=== PATIENT | female | born 1945 | race African-American/Black ===

== ENCOUNTER 2016-05-06 22:30 | Inpatient (IN) | payer MEDICARE ==
[~2016-05-06] VITALS: Ht 165.1 cm; Wt 79.3 kg
[~2016-05-06 22:30] MED LIST: ANAS1 PO; ASPI81TA82 PO; ATOR80TA41 PO; CENTTAB9 PO; FENO50TA PO; HYDR-2768 PO; IOHEXOL 350 MG/ML 100 ML BTL (for Cath Lab) OTHER ONE; LISI-363 PO; METF500 PO; NIFE60TA5 PO; NITR0.4S SL; PIOG30 PO; TRAM50TA PO; TRAV0.00 EACH EYE; VITA-13 PO; ZYRT10TA12 PO; [UNRECOGNIZED DRUG - CODE] PO
[2016-05-06 22:31] VITALS: BP 193/91; PULSE 80; RESP 16; TEMP 98; O2SAT 98
[2016-05-06 22:40] VITALS: O2SAT 96
[2016-05-06] MEDS ORDERED: NITROGLYCERIN 0.4 MG SL 25 TABS/BTL SL STA (22:42)
[2016-05-06] MEDS ORDERED: SODIUM CHLOR 0.9% 1000 ML INJ 1,000 ML IV ONE (22:42)
[2016-05-06] MEDS ORDERED: HEPARIN SODIUM - IV 10,000 UNITS/10 ML VIAL IV STA (22:42)
[2016-05-06] MEDS ORDERED: SODIUM CHLORIDE 0.9% FLUSH 5 ML FLUSH IVF PRN (22:45)
[2016-05-06] MEDS ORDERED: NITROGLYCERIN 0.4 MG SL 25 TABS/BTL SL ONE (22:47)
[2016-05-06 22:56] VITALS: BP 153/78; PULSE 91; RESP 18; O2SAT 94
[2016-05-06] MEDS: NITROGLYCERIN-DEXTROSE INJ 250 ML IV SCH (22:58)
[2016-05-06] MEDS ORDERED: ASPIRIN 81 MG CHEW TAB CHEW ONE (23:00)
[2016-05-06] MEDS ORDERED: ONDANSETRON HCL 4 MG/2 ML VIAL IV PUSH ONE (23:00)
[2016-05-06] MEDS ORDERED: MORPHINE SULFATE 4 MG/ML INJ IV PUSH ONE (23:00)
--- NOTE | 2016-05-06 23:01 | PD ---
Physical Exam Narrative General: The patient is a well-developed well-nourished female, uncomfortable appearing on arrival, slightly diaphoretic, reporting severe 10 out of 10 chest pain. Head and Neck exam: Head is normocephalic atraumatic. Eyes: Pupils are equal round and reactive to light. Nose: Midline septum with pink mucous membranes Mouth: Dentition unremarkable. Moist mucus membranes. Posterior oropharynx is not erythematous. No tonsillar hypertrophy. Uvula midline. Airway patent. Neck: No palpable lymphadenopathy. No nuchal rigidity. No thyromegaly. Cardiovascular: Regular rate and rhythm without murmurs, gallops, or rubs. No pulse deficit to the extremities and simultaneous auscultation and palpation of her radial artery. Lungs: Clear to auscultation bilaterally. No wheezes, rhonchi, or rales. Abdomen: Soft, without tenderness to palpation in all 4 quadrants of the abdomen. No guarding, rebound, or rigidity. Normal bowel sounds are audible. Extremities: No clubbing, cyanosis, or edema. 2+ pulses in all 4 extremities. No calf tenderness on palpation. Back: No spinous process tenderness to palpation. No costovertebral angle tenderness to palpation. Neurologic Exam: Grossly nonfocal. Skin Exam: No rash noted. Intact skin that is warm and dry. Data Data Last Documented VS Vital Signs Date Time Temp Pulse Resp B/P Pulse Ox O2 Delivery O2 Flow Rate FiO2 05/06/16 23:07 88 18 146/80 96 Nasal Cannula 2 05/06/16 22:31 98.0 Orders Troponin I (05/06/16 22:42) Ckmb (Isoenzyme) Profile (05/06/16 22:42) Complete Blood Count With Diff (05/06/16 22:42) I-Stat Profile (05/06/16 22:42) I-Stat Creatinine (05/06/16 22:42) Calcium (05/06/16 22:42) Magnesium (Mg) (05/06/16 22:42) Prothrombin Time / Inr (Pt) (05/06/16 22:42) Act Partial Throm Time (Ptt) (05/06/16 22:42) B-Type Natriuretic Peptide (05/06/16 22:42) Chest, Single Ap (05/06/16 22:42) Electrocardiogram (05/06/16 22:42) Oxygen Administration (05/06/16 22:42) Iv Access Insert/Monitor (05/06/16 22:42) Oximetry (05/06/16 22:42) Sodium Chlor 0.9% 1000 Ml Inj (Ns 1000 M (05/06/16 22:42) Sodium Chloride 0.9% Flush (Ns Flush) (05/06/16 22:45) Nitroglycerin Sl (Nitrostat Sl) (05/06/16 22:42) Nitroglycerin-Dextrose Inj (Nitroglyceri (05/06/16 22:45) Heparin Inj (Heparin Inj) (05/06/16 22:42) Aspirin Chew (Aspirin Chew) (05/06/16 23:00) Nitroglycerin Sl (Nitrostat Sl) (05/06/16 22:47) Morphine Inj (Morphine Inj) (05/06/16 23:00) Ondansetron Inj (Zofran Inj) (05/06/16 23:00) Admit Order (Ed Use Only) (05/06/16 23:12) CKMB (05/06/16 22:42) CKMB% (05/06/16 22:42) Labs Laboratory Tests Test 05/06/16 22:42 White Blood Count 9.0 TH/MM3 Red Blood Count 4.19 MIL/MM3 Hemoglobin 11.8 GM/DL Bedside Hemoglobin 11.9 G/DL Hematocrit 35.8 % Bedside Hematocrit 35.0 % Mean Corpuscular Volume 85.4 FL Mean Corpuscular Hemoglobin 28.2 PG Mean Corpuscular Hemoglobin 33.0 % Concent Red Cell Distribution Width 14.9 % Platelet Count 345 TH/MM3 Mean Platelet Volume 8.8 FL Neutrophils (%) (Auto) 39.8 % Lymphocytes (%) (Auto) 50.7 % Monocytes (%) (Auto) 8.1 % Eosinophils (%) (Auto) 0.9 % Basophils (%) (Auto) 0.5 % Neutrophils # (Auto) 3.6 TH/MM3 Lymphocytes # (Auto) 4.6 TH/MM3 Monocytes # (Auto) 0.7 TH/MM3 Eosinophils # (Auto) 0.1 TH/MM3 Basophils # (Auto) 0.0 TH/MM3 CBC Comment DIFF FINAL Differential Comment Prothrombin Time 10.7 SEC Prothromb Time International 1.0 RATIO Ratio Activated Partial 23.3 SEC Thromboplast Time Bedside Sodium 143 MMOL/L Bedside Potassium 4.2 MMOL/L Bedside Chloride 112 MMOL/L Bedside Blood Urea Nitrogen 35 MG/DL Bedside Creatinine 0.8 MG/DL Bedside Glucose 155 MG/DL Calcium Level 8.8 MG/DL Magnesium Level 1.8 MG/DL Total Creatine Kinase 175 U/L Creatine Kinase MB 2.7 NG/ML Troponin I 0.05 NG/ML B-Type Natriuretic Peptide 26 PG/ML [facility] Medical Record Reviewed: Yes Supervised Visit with JOSE MANUEL: Yes Interpretation(s) Laboratory Tests Test 05/06/16 22:42 White Blood Count 9.0 TH/MM3 Red Blood Count 4.19 MIL/MM3 Hemoglobin 11.8 GM/DL Bedside Hemoglobin 11.9 G/DL Hematocrit 35.8 % Bedside Hematocrit 35.0 % Mean Corpuscular Volume 85.4 FL Mean Corpuscular Hemoglobin 28.2 PG Mean Corpuscular Hemoglobin 33.0 % Concent Red Cell Distribution Width 14.9 % Platelet Count 345 TH/MM3 Mean Platelet Volume 8.8 FL Neutrophils (%) (Auto) 39.8 % Lymphocytes (%) (Auto) 50.7 % Monocytes (%) (Auto) 8.1 % Eosinophils (%) (Auto) 0.9 % Basophils (%) (Auto) 0.5 % Neutrophils # (Auto) 3.6 TH/MM3 Lymphocytes # (Auto) 4.6 TH/MM3 Monocytes # (Auto) 0.7 TH/MM3 Eosinophils # (Auto) 0.1 TH/MM3 Basophils # (Auto) 0.0 TH/MM3 CBC Comment DIFF FINAL Differential Comment Prothrombin Time 10.7 SEC Prothromb Time International 1.0 RATIO Ratio Activated Partial 23.3 SEC Thromboplast Time Bedside Sodium 143 MMOL/L Bedside Potassium 4.2 MMOL/L Bedside Chloride 112 MMOL/L Bedside Blood Urea Nitrogen 35 MG/DL Bedside Creatinine 0.8 MG/DL Bedside Glucose 155 MG/DL Calcium Level 8.8 MG/DL Magnesium Level 1.8 MG/DL Total Creatine Kinase 175 U/L Creatine Kinase MB 2.7 NG/ML Troponin I 0.05 NG/ML B-Type Natriuretic Peptide 26 PG/ML Last Impressions Chest X-Ray 05/06/16 3432 Signed Impressions: Service Date/Time: Friday, May 06, 2016 23:13 - CONCLUSION: No acute disease. Ruddy Taylor MD Narrative Course I, Dr. Cai, have reviewed the advance practice practitioner's documentation and am in agreement, met with the patient face to face, made the diagnosis, and the medical decision making was done by me. The patient was initially seen by Zoe. Please see her complete history and physical. *My assessment and Findings: The patient is a 71-year-old female who presents to [facility] emergency Department by private vehicle with a history of chest pain that awoke her from sound sleep approximately 30 minutes prior to arrival. The patient reports having history of prior myocardial infarction 18 years ago. She also reports having 2 prior stents placed. She is followed by Dr. Moses for her cardiology care. She reports that she last had a stress test done in December 2015 that was reportedly unremarkable. The patient reports that with the chest pain is of severe heaviness/pressure sensation that is 10 out of 10 in severity. She reports that there is shortness of breath associated with it, diaphoresis, and nausea. She reports that in the evening last night she was experiencing nausea before going to bed. An EKG was done on the patient's arrival and a STEMI alert was called by Zoe. She did speak to the electro mechanical designer emergently as I was tied up in another room. She spoke to Dr. Weeks at approximately 2241 and discussed the patient 's EKG findings and history with him. The patient was noted to have an anteroseptal HI with ST segment elevation in anteroseptal leads and reciprocal changes of depression in inferior leads on EKG. The patient's physical examination was remarkable for having diaphoresis, notable discomfort on exam. Otherwise cardiac and lung exam was unremarkable. The patient's initial blood pressure was a systolic in the 170s. The patient was given a sublingual nitroglycerin. The patient reports that she does take a baby aspirin daily. She was given an additional 243 mg of aspirin by mouth. She denied being on any other blood thinners. The patient was given a heparin bolus. The patient will be taken to the cardiac catheterization lab as a STEMI alert. Dr. Weeks arrived at the patient's bedside and assumed the patient's care and plans to take the patient to the Multicraft Operator urgently. The patients results were discussed with the patient, including the plan of care. I explained that further testing and/ or monitoring is indicated based on the patients history, examination, and/ or laboratory findings. Therefore, I recommended admission for additional evaluation. The patient expressed understanding and was agreeable with this plan. The patient was admitted to the hospital in guarded condition and sent to a bed under the care of the electro mechanical designer in the Multicraft Operator. Physician Communication Physician Communication The patient's case was discussed with Dr. Weeks when he arrived in the emergency department. He plans to take the patient to the Multicraft Operator urgently. The patient's case is also discussed with Dr. Weeks by Zoe, the nurse practitioner. Please see her complete history and physical regarding this visit. Diagnosis Primary Impression: STEMI (ST elevation myocardial infarction) Qualified Code: I21.3 - ST elevation myocardial infarction (STEMI), unspecified artery Admitting Information Admitting Physician Requests: Admit Scripts Unable to Obtain Active Prescriptions or Reported Meds Viky Cai MD May 06, 2016 23:01
[2016-05-06 23:07] VITALS: BP 146/80; PULSE 88; RESP 18; O2SAT 96
[2016-05-06 23:12] LABS: AUTOMATED NEUTROPHIL # 3.6 TH/MM3 (1.8-7.7); BASOPHIL % 0.5 % (0.0-2.0); EOSINOPHIL # 0.1 TH/MM3 (0-0.4); EOSINOPHIL % 0.9 % (0.0-4.0); HEMATOCRIT 35.8 % (35.0-46.0); HEMO FLAGS DIFF FINAL; I-STAT POTASSIUM 4.2 MMOL/L (3.5-4.9); I-STAT SODIUM 143 MMOL/L (138-146); LYMPH % 50.7 % (9.0-44.0); LYMPHOCYTE # 4.6 TH/MM3 (1.0-4.8); MEAN CELL VOLUME 85.4 FL (80.0-100.0); MEAN CORPUSCULAR HEMOGLOBIN 28.2 PG (27.0-34.0); MONO % 8.1 % (0.0-8.0); NEUT % 39.8 % (16.0-70.0); PLATELET COUNT 345 TH/MM3 (150-450); RED BLOOD COUNT 4.19 MIL/MM3 (4.00-5.30); RED CELL DISTRIBUTION WIDTH 14.9 % (11.6-17.2)
[2016-05-06 23:16] VITALS: BP 149/80; PULSE 89; RESP 16; O2SAT 96
--- NOTE | 2016-05-06 23:17 | PD ---
HPI Chief Complaint: STEMI Alert Time Seen by Provider: 22:40 Travel History International Travel<30 days: No Contact w/Intl Traveler<30days: No Traveled to known affect area: No History of Present Illness HPI Patient is a 71-year-old female presenting to the emergency Department by private vehicle for evaluation of chest pain. Patient states the chest pain started approximately 30 minutes prior to arrival. She was sleeping in her chair when she woke up and felt immense chest pressure. Patient reports feeling nauseated upon awakening earlier this morning and has been feeling fine otherwise. She had no preceding chest pain, shortness of breath, dizziness, radiation of pain to her arm or jaw, diaphoresis. Patient denies any recent illnesses. Patient reports a history of IA 18 years ago. PFSH Past Medical History Hx Anticoagulant Therapy: Yes (baby aspirin) Cancer: Yes (breast) Cardiac Catheterization: Yes Cardiovascular Problems: Yes High Cholesterol: Yes Chest Pain: Yes Coronary Artery Disease: Yes Diabetes: Yes Diminished Hearing: No Hypertension: Yes Myocardial Infarction: Yes Past Surgical History Coronary Stent: Yes (X2) Hysterectomy: Yes Joint Replacement: Yes (LEFT KNEE) Other Surgery: Yes (breast biopsy, breast lumpectomy, colonoscopy 2012) Social History Alcohol Use: Yes (RARELY) Tobacco Use: No Substance Use: No Allergies-Medications (Allergen,Severity, Reaction): Coded Allergies: Sulfa (Verified Allergy, Mild, N/V, 02/16/15) Reported Meds & Prescriptions Reported Meds & Active Scripts Active Review of Systems Except as stated in HPI: all other systems reviewed are Neg Cardiovascular: Positive: Chest Pain or Discomfort Gastrointestinal: Positive: Nausea Physical Exam Narrative GENERAL: Well-developed, well-nourished, alert female. Appears uncomfortable and in acute distress. SKIN: Warm and dry. HEAD: Atraumatic. Normocephalic. EYES: Pupils equal and round. No scleral icterus. No injection or drainage. ENT: No nasal bleeding or discharge. Mucous membranes pink and moist. NECK: Trachea midline. No JVD. CARDIOVASCULAR: Regular rate and rhythm. No murmur appreciated. No peripheral edema, positive pedal pulses bilaterally. Brisk less than 3 second capillary refill. RESPIRATORY: No accessory muscle use. Clear to auscultation. Breath sounds equal bilaterally. GASTROINTESTINAL: Abdomen soft, non-tender, nondistended. Hepatic and splenic margins not palpable. MUSCULOSKELETAL: No obvious deformities. No clubbing. No cyanosis. No edema. NEUROLOGICAL: Awake and alert. No obvious cranial nerve deficits. Motor grossly within normal limits. Normal speech. PSYCHIATRIC: Appropriate mood and affect; insight and judgment normal. Data Data Last Documented VS Vital Signs Date Time Temp Pulse Resp B/P Pulse Ox O2 Delivery O2 Flow Rate FiO2 05/06/16 23:07 88 18 146/80 96 Nasal Cannula 2 05/06/16 22:31 98.0 Orders Troponin I (05/06/16 22:42) Ckmb (Isoenzyme) Profile (05/06/16 22:42) Complete Blood Count With Diff (05/06/16 22:42) I-Stat Profile (05/06/16 22:42) I-Stat Creatinine (05/06/16:42) Calcium (05/06/16 22:42) Magnesium (Mg) (05/06/16 22:42) Prothrombin Time / Inr (Pt) (05/06/16 22:42) Act Partial Throm Time (Ptt) (05/06/16 22:42) B-Type Natriuretic Peptide (05/06/16 22:42) Chest, Single Ap (05/06/16 22:42) Electrocardiogram (05/06/16 22:42) Oxygen Administration (05/06/16 22:42) Iv Access Insert/Monitor (05/06/16 22:42) Oximetry (05/06/16 22:42) Sodium Chlor 0.9% 1000 Ml Inj (Ns 1000 M (05/06/16 22:42) Sodium Chloride 0.9% Flush (Ns Flush) (05/06/16 22:45) Nitroglycerin Sl (Nitrostat Sl) (05/06/16 22:42) Nitroglycerin-Dextrose Inj (Nitroglyceri (05/06/16 22:45) Heparin Inj (Heparin Inj) (05/06/16 22:42) Aspirin Chew (Aspirin Chew) (05/06/16 23:00) Nitroglycerin Sl (Nitrostat Sl) (05/06/16 22:47) Morphine Inj (Morphine Inj) (05/06/16 23:00) Ondansetron Inj (Zofran Inj) (05/06/16 23:00) Admit Order (Ed Use Only) (05/06/16 23:12) CKMB (05/06/16 22:42) CKMB% (05/06/16 22:42) Labs Laboratory Tests Test 05/06/16 22:42 White Blood Count 9.0 TH/MM3 Red Blood Count 4.19 MIL/MM3 Hemoglobin 11.8 GM/DL Bedside Hemoglobin 11.9 G/DL Hematocrit 35.8 % Bedside Hematocrit 35.0 % Mean Corpuscular Volume 85.4 FL Mean Corpuscular Hemoglobin 28.2 PG Mean Corpuscular Hemoglobin 33.0 % Concent Red Cell Distribution Width 14.9 % Platelet Count 345 TH/MM3 Mean Platelet Volume 8.8 FL Neutrophils (%) (Auto) 39.8 % Lymphocytes (%) (Auto) 50.7 % Monocytes (%) (Auto) 8.1 % Eosinophils (%) (Auto) 0.9 % Basophils (%) (Auto) 0.5 % Neutrophils # (Auto) 3.6 TH/MM3 Lymphocytes # (Auto) 4.6 TH/MM3 Monocytes # (Auto) 0.7 TH/MM3 Eosinophils # (Auto) 0.1 TH/MM3 Basophils # (Auto) 0.0 TH/MM3 CBC Comment DIFF FINAL Differential Comment Prothrombin Time 10.7 SEC Prothromb Time International 1.0 RATIO Ratio Activated Partial 23.3 SEC Thromboplast Time Bedside Sodium 143 MMOL/L Bedside Potassium 4.2 MMOL/L Bedside Chloride 112 MMOL/L Bedside Blood Urea Nitrogen 35 MG/DL Bedside Creatinine 0.8 MG/DL Bedside Glucose 155 MG/DL Calcium Level 8.8 MG/DL Magnesium Level 1.8 MG/DL Total Creatine Kinase 175 U/L Creatine Kinase MB 2.7 NG/ML Troponin I 0.05 NG/ML B-Type Natriuretic Peptide 26 PG/ML MDM Medical Decision Making Medical Screen Exam Complete: Yes Emergency Medical Condition: Yes Interpretation(s) Vital Signs Date Time Temp Pulse Resp B/P Pulse Ox O2 Delivery O2 Flow Rate FiO2 05/06/16 23:07 88 18 146/80 96 Nasal Cannula 2 05/06/16 23:06 96 Nasal Cannula 2 05/06/16 23:05 Nasal Cannula 2 05/06/16 22:56 91 18 153/78 94 Nasal Cannula 2 05/06/16 22:31 98.0 80 16 193/91 98 Differential Diagnosis Chest wall pain versus STEMI versus unstable angina versus aortic dissection versus pulmonary embolism versus other Narrative Course Patient is a 71-year-old female needed emergent evaluation of chest pain. I was presented with an EKG at approximately [address] changes/ST elevation with reciprocal changes. EKG was read by me. At that time a STEMI alert was called. I spoke with Dr. Weeks, diagnostic technician, regarding EKG changes and patient's presentation. STEMI protocol initiated. My attending physician also evaluated patient. Patient was given heparin, nitroglycerin sublingual, nitroglycerin drip started, 324 mg of aspirin. Patient placed clasp machine operator. Family at bedside. Patient transferred to the Photoengraving Finisher. Diagnosis Primary Impression: STEMI (ST elevation myocardial infarction) Qualified Code: I21.3 - ST elevation myocardial infarction (STEMI), unspecified artery Admitting Information Admitting Physician Requests: Admit Condition: Zoe Roca May 06, 2016 23:17
[2016-05-06 23:22] VITALS: BP 166/85
[2016-05-06 23:22] LABS: APTT (PATIENT) 23.3 SEC (24.3-30.1); PROTHROMBIN TIME - PATIENT 10.7 SEC (9.8-11.6)
[2016-05-06] MEDS ORDERED: MIDAZOLAM HCL 2 MG/2 ML VIAL ONE (23:24)
[2016-05-06] MEDS ORDERED: HEPARIN-NS/PF INJ 500 ML ONE (23:24)
[2016-05-06] MEDS ORDERED: HEPARIN SODIUM - IV 10,000 UNITS/10 ML VIAL ONE (23:25)
[2016-05-06] MEDS ORDERED: NITROGLYCERIN INJ 5 ML ONE (23:25)
[2016-05-06 23:30] LABS: CREATINE KINASE 175 U/L (26-192)
[2016-05-06 23:32] LABS: MAGNESIUM 1.8 MG/DL (1.5-2.5)
[2016-05-06 23:43] LABS: CKMB 2.7 NG/ML (0.5-3.6)
--- NOTE | 2016-05-06 23:47 | RADRPT ---
EXAM DATE/TIME: 05/06/2016 23:13 [place] COMPARISON: No previous studies available for comparison. INDICATIONS : Stemi alert. MEDICAL HISTORY : Coronary artery disease. SURGICAL HISTORY : Coronary artery stent. ENCOUNTER: Initial ACUITY: 1 day PAIN SCORE: Non-responsive. LOCATION: Bilateral chest FINDINGS: A single view of the chest demonstrates the lungs to be symmetrically aerated without evidence of mas s, infiltrate or effusion. The cardiomediastinal contours are unremarkable. Osseous structures are intact. CONCLUSION: No acute disease. Ruddy Taylor MD on May 06, 2016 at 23:46 Board Certified Radiologist. This report was verified electronically.
[2016-05-07] VITALS (23 sets, daily range): BP systolic 94–184; BP diastolic 33–96; PULSE 88–109; RESP 18–24; TEMP 97.5–99.1; O2SAT 88–97
[2016-05-07] MEDS ORDERED: TICAGRELOR 90 MG TAB PO ONE (01:03)
[2016-05-07] MEDS ORDERED: ONDANSETRON HCL 4 MG/2 ML VIAL IV PRN (01:30)
[2016-05-07] MEDS ORDERED: ATROPINE SULFATE 1 MG/ML VIAL IV PRN (01:30)
[2016-05-07] MEDS ORDERED: SODIUM CHLORIDE 0.9% FLUSH 5 ML FLUSH IVF PRN (01:30)
[2016-05-07] MEDS ORDERED: SODIUM CHLOR 0.9% 250 ML INJ 250 ML IV PRN (01:30)
[2016-05-07] MEDS: NITROGLYCERIN-DEXTROSE INJ 250 ML IV SCH (03:18)
[2016-05-07 06:14] LABS: AUTOMATED NEUTROPHIL # 8.6 TH/MM3 (1.8-7.7); BASOPHIL % 0.3 % (0.0-2.0); HEMATOCRIT 33.4 % (35.0-46.0); HEMO FLAGS DIFF FINAL; LYMPHOCYTE # 0.8 TH/MM3 (1.0-4.8); MEAN CELL VOLUME 84.2 FL (80.0-100.0); MEAN CORPUSCULAR HEMOGLOBIN 28.2 PG (27.0-34.0); MEAN CORPUSCULAR HGB CONC 33.5 % (32.0-36.0); MONO % 4.2 % (0.0-8.0); NEUT % 87.5 % (16.0-70.0); PLATELET COUNT 328 TH/MM3 (150-450); RED BLOOD COUNT 3.97 MIL/MM3 (4.00-5.30); RED CELL DISTRIBUTION WIDTH 14.8 % (11.6-17.2); WHITE BLOOD COUNT 9.8 TH/MM3 (4.0-11.0)
--- NOTE | 2016-05-07 06:29 | MB ---
cc: CAMACHO HENDERSON DO DATE OF CONSULTATION May 07, 2016 REASON FOR CONSULTATION STEMI Alert. HISTORY OF PRESENT ILLNESS Geraldine Uribe is a pleasant 71-year-old female who presented to [facility] on May 07, 2016, due to chest pain. She states that she was sleeping in her chair when she woke up and felt immense chest pressure. The pain started approximately 30 minutes prior to arrival. She states that she felt nauseated upon waking up earlier this morning but had been feeling fine otherwise today until this recent event that woke her up from sleep. She denies any previous chest pain, shortness of breath, dizziness. She previously had a cardiac catheterization by Dr. Burnett which had mild to moderate coronary artery disease in February of 2015. PAST MEDICAL HISTORY 1. Coronary artery disease. 2. Breast cancer. 3. Hyperlipidemia. 4. Diabetes mellitus. 5. Hypertension. PAST SURGICAL HISTORY 1. Rotational atherectomy and stenting of distal RCA with an AVE bare-metal stent (3.5 x 30) in 1997. 2. Stenting of the LAD (October 1998) with a MANI bare-metal stent (2.5 x 16). 3. Hysterectomy. 4. Left knee replacement. 5. Breast biopsy. 6. Breast lumpectomy. ALLERGIES SULFA. MEDICATIONS 1. Zyrtec 10 mg daily. 2. Tricor 145 mg daily. 3. Travoprost 0.004% one drop each eye every night. 4. Tramadol 50 mg every 4 hours as needed for pain. 5. Nitro sublingual as needed. 6. Nifedipine XL 60 mg daily. 7. Metformin 500 mg b.i.d. 8. Lisinopril 20 mg b.i.d. 9. Lipitor 80 mg every night. 10. Hydrochlorothiazide 25 mg daily. 11. Aspirin 81 mg daily. 12. Arimidex 1 mg daily. 13. Actos 30 mg daily. SOCIAL HISTORY Denies tobacco or substance abuse. Rarely drinks alcohol. FAMILY HISTORY Denies premature coronary artery disease or sudden cardiac within the family. REVIEW OF SYSTEMS Fourteen systems were reviewed in the emergency room records and above pertinent positives and negatives above, otherwise negative. PHYSICAL EXAMINATION VITAL SIGNS: Temperature 98.0, heart rate 89, blood pressure 150/80, respirations 16, pulse ox 96% on 3 liters. IN GENERAL: The patient appears in mild distress due to chest pain. HEENT: Extraocular muscles intact. Mucous membranes moist. NECK: Supple. No JVD at 45 degrees. No carotid bruits heard bilaterally. Carotid upstroke is brisk in nature. HEART: Regular in rate and rhythm. Positive first and second heart sounds with no murmurs, gallops or rubs. LUNGS: Decreased breath sounds at the bilateral bases but no overt wheezes, rales or rhonchi. ABDOMEN: Soft, nontender, nondistended. No organomegaly noted. EXTREMITIES: Trace to 1+ pitting edema. NEUROLOGIC: No focal deficits. SKIN: Warm, dry and intact. OSTEOPATHIC EXAM: No kyphoscoliosis. Mild lordosis. No paraspinal tender points. LABORATORY FINDINGS Hemoglobin 11.8, hematocrit 35.8, platelets 345. Potassium 4.2, BUN 35, creatinine 0.8. IMPRESSION 1. Acute anterior ST-elevation myocardial infarction. 2. History of coronary artery disease as above. 3. History of breast cancer. 4. Hyperlipidemia. 5. Diabetes mellitus. 6. Hypertension. RECOMMENDATIONS 1. Geraldine Uribe appears to be having an acute anterior ST- elevation myocardial infarction and will be taken to the cardiac catheterization lab emergently. She understands the risks, benefits and alternatives and consents to such. 2. Postprocedure her metformin will be held for 48 hours. 3. We will check a 2-D echo to look at her overall left ventricular function, cardiac structure and possible valvopathies. 4. Further recommendations made after coronary visualization. Thank you for allowing me to see Geraldine Uribe. If there are any questions, please do not hesitate to call. Camacho Henderson DO VGP/SSB /2:17 AM /6:18 AM
[2016-05-07 06:32] LABS: BICARBONATE 18.1 MEQ/L (21.0-32.0); POTASSIUM 4.6 MEQ/L (3.5-5.1)
[2016-05-07] MEDS: LISINOPRIL 10 MG TAB PO SCH (08:35)
[2016-05-07] MEDS: ASPIRIN 81 MG CHEW TAB PO SCH (08:36)
[2016-05-07] MEDS: TICAGRELOR 90 MG TAB PO SCH ×2 (08:36→20:58)
[2016-05-07] MEDS: NIFEdipine 20 MG CAP PO SCH ×3 (08:37→23:36)
[2016-05-07] MEDS: SODIUM CHLORIDE 0.9% FLUSH 5 ML FLUSH IVF SCH ×2 (08:47→20:59)
[2016-05-07] MEDS ORDERED: METOPROLOL TARTRATE 25 MG TAB PO SCH (09:00)
[2016-05-07] MEDS ORDERED: LISI-515 PO (09:41)
[2016-05-07] MEDS ORDERED: FENO50TA PO (09:41)
[2016-05-07] MEDS ORDERED: TRIA37.53 PO (09:41)
[2016-05-07] MEDS ORDERED: ASPI81CH CHEW (09:41)
[2016-05-07] MEDS ORDERED: NIFE1TAB86 PO (09:41)
[2016-05-07] MEDS ORDERED: LIPI80TA PO (09:41)
[2016-05-07] MEDS ORDERED: FUROSEMIDE 40 MG/4 ML VIAL IV PUSH ONE (09:45)
[2016-05-07] MEDS ORDERED: METF500T PO (09:47)
[2016-05-07] MEDS ORDERED: ANAS1 PO (09:47)
[2016-05-07] MEDS ORDERED: VITA10003 PO (09:47)
[2016-05-07] MEDS ORDERED: METO200T3 PO (09:47)
[2016-05-07] MEDS ORDERED: PIOG30TA4 PO (09:47)
--- NOTE | 2016-05-07 10:03 | MB ---
cc: CHUCK THAKUR DATE OF CONSULTATION: 05/06/2016 DATE OF : 1945 REASON FOR CONSULTATION: STEMI, chest pain. HISTORY OF PRESENT ILLNESS This is a pleasant 71-year-old black female who had been in her usual state of health, yesterday, according to her youngest daughter the patient went to yazidism, came home and took a long 5-hour nap, she interacted with family and had no complaints but her daughter stated that she thought it was a little unusual that she would sleep that length of time. The patient was awakened approximately 10:30 last night with acute onset of chest pain. She was brought to the emergency room, evaluated and seen per cardiology. The patient notes that the chest pain was intense pressure noted midsternal. She did note some radiation into both her arms with numbness and tingling. She was positive for diaphoresis. The patient denies any shortness of breath on initial chest pain episode. The patient does note a previous heart attack in 1997 and states that she had two stents during that episode. Currently the patient is in the Intensive Care Unit very dyspneic and hypoxic, O2 sat is running in the 81-84 range. She is currently on 100% non-rebreather and is actively short of breath and struggling to breathe. She is alert and oriented but is unable to give a whole lot of information secondary to the shortness of breath. Her daughter is at her side and is assisting with some of the information, the other information is gathered per the record. PAST MEDICAL HISTORY 1. Breast cancer. 2. Cardiovascular problems. 3. [place]. 4. Hyperlipidemia. 5. Chest pain. 6. Coronary artery disease. 7. Diabetes with oral hypoglycemics. 8. Hypertension. 9. Her history of anticoagulant therapy is a baby aspirin. PAST SURGICAL HISTORY 1. Coronary stents x2. 2. Hysterectomy. 3. Left knee replacement. 4. Breast biopsy with lumpectomy. 5. Colonoscopy. All done in 2012. ALLERGIES SULFA. MEDICATIONS Reported: 1. Zyrtec. 2. Vitamin D. 3. Tricor. 4. Travatan Z. 5. Tramadol. 6. Nitroglycerin sublingual. 7. Procardia XL. 8. Glucophage. 9. Lisinopril. 10. Lipitor. 11. Hydrochlorothiazide. 12. Iron supplement. 13. Centrum. 14. Multivitamins. 15. ASA. 16. Arimidex. 17. Actos. SOCIAL HISTORY Rare alcohol. No tobacco, no illicit drugs. Currently the patient lives at home with her daughter. The daughter and the patient live together. FAMILY HISTORY NA. PHYSICAL EXAMINATION VITAL SIGNS: Temperature is 98, pulse 100, respirations 22-26, O2 sat 84 to 92, 100% non-rebreather. Blood pressure 136/88. GENERAL: Well-nourished black female, looks younger than her stated age, resting in the bed in the ICU setting. She is actively short of breath and alert. HEENT: Atraumatic, normocephalic. PERRLA at 3. Mucous membranes are pink and moist. Neck is supple. No nasal or ocular discharge. CARDIOVASCULAR: Heart sounds are distant, mildly tachycardic. No murmurs, rubs or gallops appreciated. CHEST: No edema. Pulses are intact. PULMONARY: Tachypneic respirations, decreased breath sounds in her bases bilateral. No rhonchi. ABDOMEN: Abdomen is round, soft, nontender, nondistended. Active bowel sounds. MUSCULOSKELETAL: She can move all her extremities with purpose. She has equal hand home health care physician. Her pulses are intact. NEUROLOGIC: She is alert, obviously anxious, responds with short sentences or short answers. SKIN: Skin is pink mucous membranes, warm and dry. DIAGNOSTIC DATA Chest x-ray last p.m. at 2313 shows no acute disease. ASSESSMENT/PLAN 1. STEMI. 2. Dyspnea with hypoxia. 3. Diabetes. 4. Hypertension. 5. Hyperlipidemia. 6. History of breast cancer. Our plan is to admit inpatient. The patient will be kept on bedrest, heart healthy diet. Vital signs q. 1 to q. 4 as warranted per the patient's condition. 2-D echo, medications were reconciled. The patient is on heparin as well as aspirin, Brilinta, nitroglycerin drip. Cardiology is following for her acute cardiovascular needs and we will monitor her medical management. She is full code, full aggressive care to my knowledge and we will follow. Dictated by: LANEY White Chuck Thakur MD JP/TAMARA /8:42 AM /10:01 AM PT SEEN AND EXAMINED ON DAY OF ADMISSION ABOVE CHART WAS REVIEWED IN DETAIL DW PT DW RN DW SEWING MACHINE MAINTENANCE MECHANIC ABOUT PLAN OF CARE MTDD
--- NOTE | 2016-05-07 14:18 | EKG ---
Date Performed: 05/07/2016 Time Performed: 05:56:42 PTAGE: 71 years EKG: Sinus tachycardia ANTEROSEPTAL INFARCT - POSSIBLY ACUTE Lateral ST elevation, CONSI CHRISTY ACUTE INFARCT Abnormal ECG PREVIOUS TRACING : 02/16/2015 07.27 DOCTOR: Hari Srivastava Interpretating Date/Time 05/07/2016 14:15:14
--- NOTE | 2016-05-07 14:25 | EKG ---
Date Performed: 05/06/2016 Time Performed: 22:36:58 PTAGE: 71 years EKG: Sinus rhythm STEMI ST elevation in V1 and V2 suggestive on Myocardial Injury ST DEPRESSION in III and aVF ABNORMA L ECG Correlate clinically NO PREVIOUS TRACING DOCTOR: Hari Srivastava Interpretating Date/Time 05/07/2016 14:21:54
[2016-05-07] MEDS ORDERED: RESP: ALBUTEROL 2.5 MG/IPRATROPIUM 0.5 MG NEB (PRN) NEB (15:15)
[2016-05-07] MEDS ORDERED: DEXTROSE 50% IN WATER 50 ML VIAL(D50) IV PUSH PRN (15:30)
[2016-05-07] MEDS ORDERED: GLUCAGON 1 MG/ML VIAL OTHER PRN (15:30)
--- NOTE | 2016-05-07 15:36 | PD.CARD.PN ---
Subjective Subjective Remarks No chest pain, mild SOB over night but feeling somewhat better Objective Medications Current Medications Medications (Trade) Dose Ordered Sig/Davidson Route Start Time Stop Time Status Last Admin (Nitroglycerin-Dextrose Inj) 250 ml @ 0 mls/hr TITRATE IV 05/06/16 22:45 05/07/16 03:18 (NS Flush) 2 ml UNSCH PRN IVF 05/07/16 01:30 (NS Flush) 2 ml BID IVF 05/07/16 09:00 05/07/16 08:47 (Aspirin Chew) 81 mg DAILY PO 05/07/16 09:00 05/07/16 08:36 (Brilinta) 90 mg BID PO 05/07/16 09:00 05/07/16 08:36 Atropine Sulfate 0.5 mg 0.5 mg UNSCH PRN IV 05/07/16 01:30 (NS 250 ml Inj) 250 ml @ 500 mls/hr ONCE PRN IV 05/07/16 01:30 05/08/16 01:29 (Zofran Inj) 4 mg Q4H PRN IV 05/07/16 01:30 (Heparin Inj) 5,000 units Q8H SQ 05/07/16 18:00 (Lopressor) 12.5 mg BID PO 05/07/16 09:00 05/07/16 08:36 (Prinivil) 10 mg DAILY PO 05/07/16 09:00 05/07/16 08:35 (Procardia) 20 mg Q8HR PO 05/07/16 06:00 05/07/16 13:33 (Lipitor) 80 mg HS PO 05/07/16 21:00 (Arimidex) 1 mg DAILY PO 05/08/16 09:00 (Vitamin D3) 1,000 units DAILY PO 05/08/16 09:00 (Tricor) 145 mg DAILY PO 05/08/16 09:00 (Prinivil) 20 mg BID PO 05/07/16 21:00 (Actos) 30 mg DAILY PO 05/08/16 09:00 (Dyazide 37.5-25 Mg) 1 cap DAILY PO 05/08/16 09:00 (Toprol Xl) 200 mg DAILY PO 05/08/16 09:00 (D50w (Vial) Inj) 25 ml UNSCH PRN IV PUSH 05/07/16 15:30 (Glucagon Inj) 1 mg UNSCH PRN OTHER 05/07/16 15:30 Vital Signs / I&O Vital Signs Date Time Temp Pulse Resp B/P Pulse Ox O2 Delivery O2 Flow Rate FiO2 05/07/16 14:30 88 05/07/16 13:05 95 05/07/16 12:03 97 05/07/16 11:30 89 05/07/16 11:30 97.6 96 18 117/72 91 05/07/16 10:01 98 05/07/16 09:25 92 Nasal Cannula 4.00 05/07/16 08:00 92 Partial Rebreather 13.00 05/07/16 07:50 98.9 105 20 128/81 97 Arterial Line 05/07/16 07:50 105 05/07/16 05:00 99 05/07/16 05:00 98.0 99 22 136/88 96 156/86 05/07/16 04:00 100 05/07/16 04:00 98.0 103 22 138/87 92 160/88 05/07/16 03:00 98.0 100 22 143/95 95 167/33 05/07/16 03:00 100 05/07/16 02:00 103 05/07/16 02:00 98.0 103 22 146/94 92 177/92 05/07/16 01:33 97.5 100 22 164/96 88 184/96 05/07/16 01:30 101 05/07/16 00:45 93 Partial Rebreather 13.00 05/06/16 23:22 93 16 166/85 96 Nasal Cannula 3 05/06/16 23:16 89 16 149/80 96 Nasal Cannula 3 05/06/16 23:07 88 18 146/80 96 Nasal Cannula 2 05/06/16 23:06 96 Nasal Cannula 2 05/06/16 23:05 Nasal Cannula 2 05/06/16 22:56 91 18 153/78 94 Nasal Cannula 2 05/06/16 22:40 96 2.00 05/06/16 22:31 98.0 80 16 193/91 98 I/O 05/06/16 05/06/16 05/06/16 05/07/16 05/07/16 05/07/16 07:00 15:00 23:00 07:00 15:00 23:00 Intake Total 260 ml Output Total 550 ml Balance -290 ml Intake Oral 240 ml IV Total 20 ml Output Urine Total 550 ml Physical Exam GENERAL: NAD, AAOx3 SKIN: Warm and dry. HEAD: Atraumatic. Normocephalic. EYES: Pupils equal and round. No scleral icterus. No injection or drainage. ENT: No nasal bleeding or discharge. Mucous membranes pink and moist. NECK: Trachea midline. No JVD. CARDIOVASCULAR: Regular rate and rhythm. RESPIRATORY: No accessory muscle use. Decreased breath sounds bilaterally, mild rales at bases GASTROINTESTINAL: Abdomen soft, non-tender, nondistended. Hepatic and splenic margins not palpable. MUSCULOSKELETAL: Extremities without clubbing, cyanosis, or edema. No obvious deformities. Right femoral no hematoma/bruit, distal pulses intact NEUROLOGICAL: Awake and alert. No obvious cranial nerve deficits. Motor grossly within normal limits. Five out of 5 muscle strength in the arms and legs. Normal speech. PSYCHIATRIC: Appropriate mood and affect; insight and judgment normal. Laboratory Laboratory Tests Test 05/06/16 05/07/16 22:42 05:36 White Blood Count 9.0 TH/MM3 9.8 TH/MM3 Red Blood Count 4.19 MIL/MM3 3.97 MIL/MM3 Hemoglobin 11.8 GM/DL 11.2 GM/DL Bedside Hemoglobin 11.9 G/DL Hematocrit 35.8 % 33.4 % Bedside Hematocrit 35.0 % Mean Corpuscular Volume 85.4 FL 84.2 FL Mean Corpuscular Hemoglobin 28.2 PG 28.2 PG Mean Corpuscular Hemoglobin 33.0 % 33.5 % Concent Red Cell Distribution Width 14.9 % 14.8 % Platelet Count 345 TH/MM3 328 TH/MM3 Mean Platelet Volume 8.8 FL 8.7 FL Neutrophils (%) (Auto) 39.8 % 87.5 % Lymphocytes (%) (Auto) 50.7 % 8.0 % Monocytes (%) (Auto) 8.1 % 4.2 % Eosinophils (%) (Auto) 0.9 % 0.0 % Basophils (%) (Auto) 0.5 % 0.3 % Neutrophils # (Auto) 3.6 TH/MM3 8.6 TH/MM3 Lymphocytes # (Auto) 4.6 TH/MM3 0.8 TH/MM3 Monocytes # (Auto) 0.7 TH/MM3 0.4 TH/MM3 Eosinophils # (Auto) 0.1 TH/MM3 0.0 TH/MM3 Basophils # (Auto) 0.0 TH/MM3 0.0 TH/MM3 CBC Comment DIFF FINAL DIFF FINAL Differential Comment Prothrombin Time 10.7 SEC Prothromb Time International 1.0 RATIO Ratio Activated Partial 23.3 SEC Thromboplast Time Bedside Sodium 143 MMOL/L Bedside Potassium 4.2 MMOL/L Bedside Chloride 112 MMOL/L Bedside Blood Urea Nitrogen 35 MG/DL Bedside Creatinine 0.8 MG/DL Bedside Glucose 155 MG/DL Calcium Level 8.8 MG/DL 8.4 MG/DL Magnesium Level 1.8 MG/DL Total Creatine Kinase 175 U/L Creatine Kinase MB 2.7 NG/ML Troponin I 0.05 NG/ML B-Type Natriuretic Peptide 26 PG/ML Sodium Level 138 MEQ/L Potassium Level 4.6 MEQ/L Chloride Level 110 MEQ/L Carbon Dioxide Level 18.1 MEQ/L Anion Gap 10 MEQ/L Blood Urea Nitrogen 26 MG/DL Creatinine 0.85 MG/DL Estimat Glomerular Filtration 80 ML/MIN Rate Random Glucose 209 MG/DL Assessment and Plan Problem List: (1) STEMI (ST elevation myocardial infarction) (2) Coronary artery disease (3) Hypertension (4) S/P coronary artery stent placement Assessment and Plan 1) Acute anterior STEMI s/p RODNEY to LAD#1, RODNEY to LAD#2 (has a dual LAD system) 2) ASA/Brilinta/BB/Statin 3) Check 2D echo 4) Lasix IV today, will reassess tomorrow, LVEDP elevated on cath Problem Qualifiers (1) STEMI (ST elevation myocardial infarction): Qualified Code: I21.3 - ST elevation myocardial infarction (STEMI), unspecified artery Camacho Weeks DO May 07, 2016 15:36
[2016-05-07] MEDS: INSULIN ASPART SUPPLEMENTAL SCALE SQ SCH ×2 (16:19→21:00)
[2016-05-07] MEDS: HEPARIN SODIUM - SQ 10,000 UNITS/ML VIAL SQ SCH (17:51)
[2016-05-07] MEDS: LISINOPRIL 20 MG TAB PO SCH (20:58)
[2016-05-07] MEDS: ATORVASTATIN 40 MG TAB PO SCH (20:58)
[2016-05-07] MEDS ORDERED: ATORVASTATIN 10 MG TAB PO SCH (21:00)
[2016-05-07] MEDS ORDERED: ATORVASTATIN 80 MG TAB PO SCH (21:00)
[2016-05-08] VITALS (23 sets, daily range): BP systolic 105–122; BP diastolic 57–74; PULSE 85–120; RESP 20–26; TEMP 97.6–100.4; O2SAT 92–98
[2016-05-08] MEDS: HEPARIN SODIUM - SQ 10,000 UNITS/ML VIAL SQ SCH ×3 (03:37→16:20)
[2016-05-08] MEDS ORDERED: ACETAMINOPHEN 325 MG TAB PO PRN (05:00)
[2016-05-08 05:03] LABS: HEMATOCRIT 32.9 % (35.0-46.0); MEAN CELL VOLUME 83.3 FL (80.0-100.0); MEAN CORPUSCULAR HGB CONC 33.6 % (32.0-36.0); PLATELET COUNT 275 TH/MM3 (150-450); RED BLOOD COUNT 3.95 MIL/MM3 (4.00-5.30); RED CELL DISTRIBUTION WIDTH 14.8 % (11.6-17.2); REVIEW FLAG FINAL; WHITE BLOOD COUNT 11.3 TH/MM3 (4.0-11.0)
[2016-05-08 05:27] LABS: BICARBONATE 19.5 MEQ/L (21.0-32.0); POTASSIUM 3.9 MEQ/L (3.5-5.1)
[2016-05-08] MEDS: NIFEdipine 20 MG CAP PO SCH ×3 (05:41→21:30)
[2016-05-08] MEDS: INSULIN ASPART SUPPLEMENTAL SCALE SQ SCH ×4 (06:27→21:31)
[2016-05-08] MEDS: ANASTROZOLE 1 MG TAB PO SCH (08:18)
[2016-05-08] MEDS: TICAGRELOR 90 MG TAB PO SCH ×2 (08:18→21:30)
[2016-05-08] MEDS: LISINOPRIL 20 MG TAB PO SCH ×2 (08:18→21:31)
[2016-05-08] MEDS: ASPIRIN 81 MG CHEW TAB PO SCH (08:18)
[2016-05-08] MEDS: FENOFIBRATE 145 MG TAB PO SCH (08:18)
[2016-05-08] MEDS: LISINOPRIL 10 MG TAB PO SCH (08:18)
[2016-05-08] MEDS: CHOLECALCIFEROL (VIT D3) 1000 UNIT TAB PO SCH (08:18)
[2016-05-08] MEDS: SODIUM CHLORIDE 0.9% FLUSH 5 ML FLUSH IVF SCH ×2 (08:19→21:31)
[2016-05-08] MEDS: METOPROLOL SUCCINATE 50 MG EXTENDED RELEASE TAB PO SCH (08:19)
[2016-05-08] MEDS: PIOGLITAZONE HCL 30 MG TAB PO SCH (08:19)
[2016-05-08] MEDS ORDERED: ASPIRIN 81 MG CHEW TAB CHEW SCH (09:00)
[2016-05-08] MEDS ORDERED: NIFEdipine 60 MG SUSTAINED RELEASE TAB PO SCH (09:00)
[2016-05-08] MEDS ORDERED: TRIAMTERENE/HCTZ 37.5 MG/25 MG CAP PO SCH (09:00)
--- NOTE | 2016-05-08 10:39 | MA ---
cc: CAMACHO HENDERSON DO DATE: 05/06/2016 PROCEDURE 1. Left heart catheterization. 2. Coronary angiogram. 3. Resolute drug-eluting stent (2.25 x 22) to LAD #1. 4. Resolute drug-eluting stent (2.25 x 18) to LAD #2. 5. Aspiration thrombectomy of ramus branch. PREPROCEDURE DIAGNOSIS Acute anterior ST elevation myocardial infarction. POSTPROCEDURE DIAGNOSIS Multivessel disease with a 99% occlusion and thrombus within LAD #1, 100% occlusion of LAD #2. MEDICATIONS GIVEN 1. Heparin 6000 units (given 5000 units in the emergency room). 2. Fentanyl 50 mcg. 3. Nitro drip decreased to off. 4. Brilinta 180 mg. CONTRAST USED 290 cc. FLUOROSCOPY TIME 18.4 minutes. ESTIMATED BLOOD LOSS 40 cc. PROCEDURAL SUMMARY Geraldine Uribe is a pleasant 71-year-old female who originally presented due to chest pain. She was found to have anterior ST elevations on her EKG and she was brought to the cardiac catheterization lab emergently. The risks, benefits and alternatives were explained and she consented as such. She was prepped in the usual sterile fashion. The right femoral artery was accessed using a modified Seldinger technique with a micropuncture needle with placement of a 6-Tajik sheath which was easily aspirated and flushed. A JR4 was then advanced to the ascending aorta over a J-wire and this was used to cross the aortic valve for measurement of the left ventricular pressure. LVEDP was elevated at 39. This was pulled back across the aortic valve showing no significant gradient of aortic stenosis. The JR4 was then used for selective angiography of the right coronary artery which is a dominant vessel. Throughout the proximal and midportion there are mild luminal irregularities. In the distal portion a previous stent had 30-40% in-stent restenosis. No collaterals are noted to the left coronary system. The JR4 was then exchanged for an EBU 3.5 guide which was used for selective angiography of the left coronary system. The left main is a relatively normal-appearing vessel which ends up trifurcating into an LAD, ramus and left circumflex. The patient is known to have a dual LAD system and the medial LAD has 99% stenosis with thrombus throughout. The more lateral LAD which appears to come off the ramus had a previous stent in it and is 100% occluded. The other branch off the ramus is a large vessel with no significant disease. The circumflex gives off one obtuse marginal and has no significant disease. INTERVENTION At this time the medial LAD is somewhat open with thrombus within it as the lateral LAD is 100% occluded. The patient was having some resolution of symptoms so I questioned the chronicity of the lateral LAD occlusion. I did attempt briefly to try to place a wire across this and was unsuccessful. At that time I thought the culprit vessel was the medial LAD. A BMW wire was then advanced to the distal portion. A compliant balloon (2 x 12) was used to cross the lesion. After this, this was exchanged for a noncompliant balloon (2 x 12). The lesion was then stented with a Resolute drug-eluting stent (2.25 x 22). A noncompliant balloon (2.25 x 15) was then used to post dilate the stent. At this time Geraldine was still having significant chest pain and so I felt that the lateral LAD needed to be reevaluated. A second BMW wire was then advanced and able to cross through the previous stent. A compliant balloon (2 x 12) was then advanced and inflated across the lesion. At this time there was notable thrombus most likely from ballooning the previous lesion in the other branch of the ramus. A third BMW wire was then placed down the ramus. An [place] catheter was then used for aspiration thrombectomy of the ramus. It was noted that this pushed this somewhat distally and a balloon was then used to daughter the distal portions of the ramus. After this an attempt was made for [place] aspiration thrombectomy of the distal ramus. After flow was reestablished in the ramus a Resolute drug-eluting stent (2.25 x 18) was then advanced down the lateral LAD and inflated just distal to the ostium to cover the previous stent. The noncompliant balloon (2.25 x 15) was then used to post dilate the stent. After removal of the noncompliant balloon selective angiography showed two well-expanded stents with no perforations or dissections as well as SHEMAR-III flow throughout the ramus with no thrombus distally. At this time the EBU catheter was removed over a J-wire. Nitro had been weaned throughout the case and was off at the end of the case. The femoral sheath was then sewn in with a plan for this to be pulled later in the day. The patient left the cath lab technologist cardiovascularly stable. IMPRESSIONS 1. Acute anterior ST elevation myocardial infarction. 2. Multivessel disease with stenting as above. 3. Elevated LVEDP at 39. RECOMMENDATIONS 1. Geraldine will be placed on aspirin and Brilinta and was loaded with 180 mg of Brilinta in the cath lab technologist. She understands that she needs to be on Brilinta for at least 12 months and aspirin indefinitely. 2. 2-D echo will be done to look at her overall left ventricular function, cardiac structure and possible valvulopathies. 3. Her regular ultrasonic welding machine operator is Dr. Burnett and I will discuss with him whether he would like to see the patient or if he would like me to take care of the patient, and on discharge have her follow-up with him. 4. She will be placed on statin therapy. 5. Further recommendations based on hospital course. Thank you for allowing me to see Geraldine Uribe. If there are any questions, please do not hesitate to call. Camacho Henderson DO VGP/BT /11:00 PM /10:09 AM
--- NOTE | 2016-05-08 12:33 | EC ---
Study Study Date:05/07/2016 STUDY CONCLUSIONS SUMMARY - Left ventricle: The cavity size was normal. Wall thickness was normal. Systolic function was severely reduced. The estimated ejection fraction was 15%. Diffuse hypokinesis. Akinesis. - Aortic valve: Valve area: 2.59cm^2(VTI). Valve area: 2.37cm^2 (Vmax). - Mitral valve: Mild regurgitation. - Tricuspid valve: Mild regurgitation. - Pulmonary arteries: PA peak pressure: 35mm Hg (S). If LV function is below 40, please consider prescribing an ACEI or ARB or document rationale for non-use. PROCEDURE DATA STUDY STATUS: Elective. Procedure: Transthoracic echocardiography. Image quality was good. Scanning was performed from the parasternal, apical, and subcostal acoustic windows. Study completion: The patient tolerated the procedure well. Transthoracic echocardiography. M-mode, complete 2D, complete spectral Doppler, and color Doppler. Height: Height: 65in. Weight: Weight: 173.6lb. Body mass index: BMI: 29kg/m^2. Body surface area: BSA: 1.86m^2. Patient status: Inpatient. CARDIAC ANATOMY LEFT VENTRICLE: The cavity size was normal. Wall thickness was normal. Systolic function was severely reduced. The estimated ejection fraction was 15%. Diffuse hypokinesis. Regional wall motion abnormalities: Akinesis. AORTIC VALVE: Trileaflet; normal thickness leaflets. Doppler: Transvalvular velocity was within the normal range. There was no stenosis. No regurgitation. Valve area: 2.59cm^2(VTI). Indexed valve area: 1.39cm^2/m^2 (VTI). Valve area: 2.37cm^2 (Vmax). Indexed valve area: 1.27cm^2/m^2 (Vmax). Mean gradient: 2mm Hg (S). AORTA: Aortic root: The aortic root was normal in size. MITRAL VALVE: Structurally normal valve. Doppler: Transvalvular velocity was within the normal range. There was no evidence for stenosis. Mild regurgitation. LEFT ATRIUM: The atrium was normal in size. RIGHT VENTRICLE: The cavity size was normal. Wall thickness was normal. PULMONIC VALVE: Doppler: Transvalvular velocity was within the normal range. There was no evidence for stenosis. No regurgitation. TRICUSPID VALVE: Structurally normal valve. Doppler: Transvalvular velocity was within the normal range. Mild regurgitation. PULMONARY ARTERY: The main pulmonary artery was normal-sized. Systolic pressure was within the normal range. RIGHT ATRIUM: The atrium was normal in size. PERICARDIUM: There was no pericardial effusion. SYSTEMIC VEINS: Inferior vena cava: The vessel was normal in size. Patient weight: 173.6lb _Ejection fraction:_ 65-75% _Fractional shortening:_ 32% up to 5Kg 5-11.5Kg 11.6-22.9Kg 23-45Kg 45-57Kg Aortic Root 7-13 <17 13-22 17-27 17-27 LA diam 6-13 <23 24-38 33-47 37-40 RVID 10-17 7-15 7-15 7-18 8-17 LVIDd 12-22 <32 24-38 33-47 37-40 LVPW 2-4 3-6 5-7 6-8 7-8 IVS 2-4 3-6 5-7 6-8 7-8 BASIC MEASUREMENTS ADULT NORMAL Left ventricle LV internal dimension, ED, chordal 51.8 mm 43-52 level, PLAX LV internal dimension, ES, chordal *48.3 mm 23-38 level, PLAX Fractional shortening, chordal level, *7 % >29 PLAX LV posterior wall thickness, ED 7.35 mm IVS/LVPW ratio, ED 1.06 <1.3 Ventricular septum Septal thickness, ED 7.76 mm Aortic valve Leaflet separation 17 mm 15-26 Aorta Root diameter, ED 29 mm Left atrium Anterior-posterior dimension 30 mm Anterior-posterior dimension index 1.61 cm/m^2 <2.2 BASIC MEASUREMENTS ADULT NORMAL Aortic valve Leaflet separation 17 mm 15-26 DOPPLER MEASUREMENTS ADULT NORMAL Main pulmonary artery Pressure, S *35 mm Hg =30 Aortic valve Peak velocity, S 85.7 cm/s Mean velocity, S 64.7 cm/s VTI, S 13.7 cm Mean gradient, S 2 mm Hg Valve area, VTI 2.59 cm^2 Valve area index, VTI 1.39 cm^2/m^2 Valve area, Vmax 2.37 cm^2 Valve area index, Vmax 1.27 cm^2/m^2 Mitral valve Peak E-wave velocity 38.6 cm/s Peak A-wave velocity 87.6 cm/s Deceleration time *77 ms 150-230 Peak E/A ratio 0.4 Tricuspid valve Regurgitant peak velocity 283 cm/s Peak RV-RA gradient, S 32 mm Hg Maximal regurgitant velocity 283 cm/s Systemic veins Estimated CVP 5 mm Hg Right ventricle RV pressure, S *37 mm Hg <30 Pulmonic valve Peak velocity, S 72.4 cm/s LEGEND: Mean values are shown as u=mean value. Asterisk (*) burrows values outside specified normal range. Prepared and signed by Hari Srivastava [id number]
--- NOTE | 2016-05-08 14:00 | HHI.PR ---
Subjective Remarks Patient is feeling tired Sometime shortness of breath No cough No wheezing No chest pain No known pain Had a bowel movement today No nausea vomiting Review of system for 12 point system otherwise unremarkable Objective Objective Results - Vital Signs Date Time Temp Pulse Resp B/P Pulse Ox O2 Delivery O2 Flow Rate FiO2 05/08/16 12:01 95 05/08/16 11:45 97.6 95 24 117/61 98 05/08/16 11:00 90 05/08/16 10:00 89 05/08/16 09:00 89 05/08/16 08:01 98.3 107 20 113/69 92 05/08/16 08:00 104 05/08/16 07:23 93 Nasal Cannula 2.00 05/08/16 07:00 98 05/08/16 06:00 109 05/08/16 05:00 110 05/08/16 03:00 100.4 104 26 105/57 94 Arterial Line 05/08/16 03:00 120 05/08/16 01:00 108 05/07/16 23:00 98.7 109 24 124/72 91 05/07/16 23:00 104 05/07/16 21:00 103 05/07/16 20:40 Nasal Cannula 2.00 05/07/16 20:00 99 05/07/16 19:00 106 05/07/16 19:00 99.1 106 22 129/66 91 05/07/16 18:01 101 05/07/16 17:09 99 05/07/16 16:00 96 05/07/16 15:57 97.8 88 18 94/52 95 05/07/16 15:57 92 05/07/16 14:30 88 I/O 05/07/16 05/07/16 05/07/16 05/08/16 05/08/16 05/08/16 07:00 15:00 23:00 07:00 15:00 23:00 Intake Total 260 ml 480 ml 440 ml Output Total 550 ml 1200 ml Balance -290 ml -720 ml 440 ml Intake Oral 240 ml 480 ml 440 ml IV Total 20 ml Output Urine Total 550 ml 1200 ml # Voids 3 # Bowel Movements 0 0 Result Diagram: 05/08/16 0425 05/08/16 0425 Other Results Laboratory Tests Test 05/08/16 04:25 White Blood Count 11.3 Red Blood Count 3.95 Hemoglobin 11.1 Hematocrit 32.9 Mean Corpuscular Volume 83.3 Mean Corpuscular Hemoglobin 28.0 Mean Corpuscular Hemoglobin 33.6 Concent Red Cell Distribution Width 14.8 Platelet Count 275 Mean Platelet Volume 8.9 Sodium Level 137 Potassium Level 3.9 Chloride Level 105 Carbon Dioxide Level 19.5 Anion Gap 13 Blood Urea Nitrogen 26 Creatinine 0.83 Estimat Glomerular Filtration 82 Rate Random Glucose 175 Calcium Level 9.1 Physical Exam Physical Exam VITAL SIGNS: Reviewed GENERAL: Well-nourished black female, looks younger than her stated age, resting in recliner. Not in any acute distress HEENT: Atraumatic, normocephalic. PERRLA at 3. Mucous membranes are pink and moist. Neck is supple. No nasal or ocular discharge. CARDIOVASCULAR: Heart sounds are distant, mildly tachycardic. No murmurs, rubs or gallops appreciated. CHEST: No edema. Pulses are intact. PULMONARY: decreased breath sounds in her bases bilateral. No rhonchi. ABDOMEN: Abdomen is round, soft, nontender, nondistended. Active bowel sounds. MUSCULOSKELETAL: She can move all her extremities with purpose. She has equal hand associate field service engineer. Her pulses are intact. NEUROLOGIC: She is alert, responds with short sentences or short answers. SKIN: Skin is pink mucous membranes, warm and dry. A/P Assessment and Plan 1. STEMI. 2. Dyspnea with hypoxia. 3. Diabetes. 4. Hypertension. 5. Hyperlipidemia. 6. History of breast cancer. Status post cardiac catheter and stent. 2-D echo report reviewed EF of 15% Medications reviewed Improving bicarbonate heart healthy diet. aspirin, Brilinta Discuss with cardiology Cardiology is following appreciate input and help. Dr. Lex keller follow from today Further recommendation follow sufficient progress. Discussed with RN next line discussed with patient Condition guarded Scotty Thakur MD May 08, 2016 14:00
[2016-05-08] MEDS ORDERED: POTASSIUM CHLORIDE 20 MEQ CONTROLLED RELEASE TAB PO ONE (20:45)
[2016-05-08] MEDS ORDERED: FUROSEMIDE 20 MG/2 ML VIAL IV PUSH ONE (20:45)
[2016-05-08] MEDS: ATORVASTATIN 40 MG TAB PO SCH (21:30)
[2016-05-08 22:07] LABS: CREATINE KINASE 1846 U/L (26-192)
[2016-05-08 22:26] LABS: CKMB 25.9 NG/ML (0.5-3.6)
[2016-05-09] VITALS (30 sets, daily range): BP systolic 89–121; BP diastolic 50–63; PULSE 84–103; RESP 17–20; TEMP 97.5–98.2; O2SAT 95–96
[2016-05-09] MEDS: HEPARIN SODIUM - SQ 10,000 UNITS/ML VIAL SQ SCH ×3 (01:10→17:06)
[2016-05-09] MEDS: NIFEdipine 20 MG CAP PO SCH ×3 (06:21→21:08)
[2016-05-09] MEDS: INSULIN ASPART SUPPLEMENTAL SCALE SQ SCH ×4 (06:25→21:08)
[2016-05-09 06:27] LABS: AUTOMATED NEUTROPHIL # 7.4 TH/MM3 (1.8-7.7); BASOPHIL % 0.4 % (0.0-2.0); EOSINOPHIL % 0.2 % (0.0-4.0); HEMATOCRIT 32.2 % (35.0-46.0); HEMO FLAGS DIFF FINAL; LYMPH % 15.4 % (9.0-44.0); LYMPHOCYTE # 1.5 TH/MM3 (1.0-4.8); MEAN CELL VOLUME 83.6 FL (80.0-100.0); MEAN CORPUSCULAR HGB CONC 33.4 % (32.0-36.0); MONO % 10.6 % (0.0-8.0); NEUT % 73.4 % (16.0-70.0); PLATELET COUNT 262 TH/MM3 (150-450); RED BLOOD COUNT 3.85 MIL/MM3 (4.00-5.30); RED CELL DISTRIBUTION WIDTH 14.6 % (11.6-17.2)
[2016-05-09 07:01] LABS: ALKALINE PHOSPHATASE 65 U/L (45-117); ALT (GPT) 68 U/L (10-53); ANION GAP 11 MEQ/L (5-15); AST (GOT) 213 U/L (15-37); BICARBONATE 20.9 MEQ/L (21.0-32.0); BLOOD UREA NITROGEN 28 MG/DL (7-18); CHLORIDE 102 MEQ/L (98-107); GLOMERULAR FILTRATION RATE 66 ML/MIN (>89); POTASSIUM 3.8 MEQ/L (3.5-5.1); SODIUM (NA) 134 MEQ/L (136-145); TOTAL BILIRUBIN ADULT 1.3 MG/DL (0.2-1.0)
[2016-05-09] MEDS: ANASTROZOLE 1 MG TAB PO SCH (08:39)
[2016-05-09] MEDS: CHOLECALCIFEROL (VIT D3) 1000 UNIT TAB PO SCH (08:39)
[2016-05-09] MEDS: ASPIRIN 81 MG CHEW TAB PO SCH (08:40)
[2016-05-09] MEDS: TICAGRELOR 90 MG TAB PO SCH ×2 (08:40→20:03)
[2016-05-09] MEDS: SPIRONOLACTONE 25 MG TAB PO SCH ×2 (08:40→20:03)
[2016-05-09] MEDS: PIOGLITAZONE HCL 30 MG TAB PO SCH (08:40)
[2016-05-09] MEDS: SODIUM CHLORIDE 0.9% FLUSH 5 ML FLUSH IVF SCH ×2 (08:41→20:06)
[2016-05-09] MEDS: FENOFIBRATE 145 MG TAB PO SCH (08:41)
[2016-05-09] MEDS: METOPROLOL SUCCINATE 50 MG EXTENDED RELEASE TAB PO SCH (09:00)
[2016-05-09] MEDS: LISINOPRIL 20 MG TAB PO SCH (09:00)
[2016-05-09] MEDS: LISINOPRIL 10 MG TAB PO SCH (09:00)
--- NOTE | 2016-05-09 13:44 | HHI.PR ---
Subjective Interval History awake alert and oriented low BP today lisinopril held daughter at bed side awaiting life vest no other complaints Vitals/Results Intake & Output 05/08/16 05/08/16 05/09/16 15:00 23:00 07:00 Intake Total 480 ml 240 ml Balance 480 ml 240 ml Intake Oral 480 ml 240 ml # Voids 3 3 # Bowel Movements 1 0 Vital Signs Vital Signs Date Time Temp Pulse Resp B/P Pulse Ox O2 Delivery O2 Flow Rate FiO2 05/09/16 13:00 94 05/09/16 12:00 92 05/09/16 11:07 98.0 94 20 102/59 96 05/09/16 11:00 92 05/09/16 10:00 92 05/09/16 09:00 90 05/09/16 08:17 96 Nasal Cannula 1.00 05/09/16 08:00 95 05/09/16 08:00 97.7 95 20 95/59 95 05/09/16 07:00 93 05/09/16 06:00 87 05/09/16 05:00 88 05/09/16 04:00 95 05/09/16 04:00 98.2 95 20 110/63 95 05/09/16 03:00 85 05/09/16 02:00 85 05/09/16 01:00 90 05/09/16 00:00 93 05/09/16 00:00 98.2 93 20 101/57 95 05/08/16 23:00 87 05/08/16 22:00 90 05/08/16 21:00 86 05/08/16 20:00 98.0 86 20 122/74 93 05/08/16 20:00 86 05/08/16 19:42 97 Nasal Cannula 1.00 05/08/16 18:01 85 05/08/16 16:01 86 05/08/16 15:01 89 05/08/16 15:01 98.3 90 24 107/58 94 05/08/16 14:00 94 CBC/BMP: 05/09/16 0556 05/09/16 0556 Lab Results Laboratory Tests Test 05/08/16 05/09/16 21:10 05:56 Total Creatine Kinase 1846 U/L Creatine Kinase MB 25.9 NG/ML Creatine Kinase MB % 1.4 % Troponin I GREATER THAN 40.00 NG/ML White Blood Count 10.0 TH/MM3 Red Blood Count 3.85 MIL/MM3 Hemoglobin 10.8 GM/DL Hematocrit 32.2 % Mean Corpuscular Volume 83.6 FL Mean Corpuscular Hemoglobin 28.0 PG Mean Corpuscular Hemoglobin 33.4 % Concent Red Cell Distribution Width 14.6 % Platelet Count 262 TH/MM3 Mean Platelet Volume 8.9 FL Neutrophils (%) (Auto) 73.4 % Lymphocytes (%) (Auto) 15.4 % Monocytes (%) (Auto) 10.6 % Eosinophils (%) (Auto) 0.2 % Basophils (%) (Auto) 0.4 % Neutrophils # (Auto) 7.4 TH/MM3 Lymphocytes # (Auto) 1.5 TH/MM3 Monocytes # (Auto) 1.1 TH/MM3 Eosinophils # (Auto) 0.0 TH/MM3 Basophils # (Auto) 0.0 TH/MM3 CBC Comment DIFF FINAL Differential Comment Sodium Level 134 MEQ/L Potassium Level 3.8 MEQ/L Chloride Level 102 MEQ/L Carbon Dioxide Level 20.9 MEQ/L Anion Gap 11 MEQ/L Blood Urea Nitrogen 28 MG/DL Creatinine 1.01 MG/DL Estimat Glomerular Filtration 66 ML/MIN Rate Random Glucose 153 MG/DL Calcium Level 8.7 MG/DL Total Bilirubin 1.3 MG/DL Aspartate Amino Transf 213 U/L (AST/SGOT) Alanine Aminotransferase 68 U/L (ALT/SGPT) Alkaline Phosphatase 65 U/L Total Protein 6.8 GM/DL Albumin 3.1 GM/DL Assessment/Plan Assessment/Plan Physical Exam Physical Exam VITAL SIGNS: Reviewed GENERAL: Well-nourished black female, looks younger than her stated age, resting in recliner. Not in any acute distress HEENT: Atraumatic, normocephalic. PERRLA at 3. Mucous membranes are pink and moist. Neck is supple. No nasal or ocular discharge. CARDIOVASCULAR: rate controlled. No murmurs,rubs or gallops appreciated. CHEST: No edema. Pulses are intact. PULMONARY: decreased breath sounds in her bases bilateral. No rhonchi. ABDOMEN: Abdomen is round, soft, nontender, nondistended. Active bowel sounds. MUSCULOSKELETAL: She can move all her extremities with purpose. She has equal hand tools developer. Her pulses are intact. NEUROLOGIC: She is alert, responds with short sentences or short answers. SKIN: Skin is pink mucous membranes, warm and dry. Plan A/P Assessment and Plan 1. STEMI. 2. Dyspnea with hypoxia. 3. Diabetes. 4. Hypertension. 5. Hyperlipidemia. 6. History of breast cancer. Status post cardiac catheter and stent. 2-D echo report reviewed EF of 15% monitor BP, will add holding parameters to antihypertensives Medications reviewed Improving bicarbonate heart healthy diet. aspirin life long, Brilinta for 12 months Cardiology is following appreciate input and help. awaiting life vest Discussed with RN next line discussed with patient/ daughter at bed side Condition guarded Martha Euceda MD May 09, 2016 13:44
[2016-05-09] MEDS ORDERED: METOPROLOL SUCCINATE 50 MG EXTENDED RELEASE TAB PO ONE (20:00)
[2016-05-09] MEDS: ATORVASTATIN 40 MG TAB PO SCH (20:04)
[2016-05-10] VITALS (27 sets, daily range): BP systolic 98–113; BP diastolic 56–58; PULSE 71–92; RESP 17–19; TEMP 97.8–98.2; O2SAT 96–97
[2016-05-10] MEDS ORDERED: CALCIUM CARBONATE 500 MG CHEWABLE TAB CHEW PRN (00:15)
[2016-05-10] MEDS: HEPARIN SODIUM - SQ 10,000 UNITS/ML VIAL SQ SCH ×3 (03:41→18:24)
[2016-05-10] MEDS: INSULIN ASPART SUPPLEMENTAL SCALE SQ SCH ×4 (06:22→20:42)
[2016-05-10] MEDS: NIFEdipine 20 MG CAP PO SCH (06:22)
[2016-05-10 06:30] LABS: AUTOMATED NEUTROPHIL # 7.1 TH/MM3 (1.8-7.7); BASOPHIL # 0.1 TH/MM3 (0-0.2); BASOPHIL % 0.6 % (0.0-2.0); EOSINOPHIL % 0.2 % (0.0-4.0); HEMATOCRIT 33.1 % (35.0-46.0); HEMO FLAGS DIFF FINAL; MEAN CELL VOLUME 84.4 FL (80.0-100.0); MEAN CORPUSCULAR HEMOGLOBIN 28.1 PG (27.0-34.0); MEAN CORPUSCULAR HGB CONC 33.3 % (32.0-36.0); MONO % 9.2 % (0.0-8.0); PLATELET COUNT 298 TH/MM3 (150-450); RED BLOOD COUNT 3.92 MIL/MM3 (4.00-5.30); RED CELL DISTRIBUTION WIDTH 14.6 % (11.6-17.2)
[2016-05-10 06:53] LABS: ALKALINE PHOSPHATASE 70 U/L (45-117); ALT (GPT) 78 U/L (10-53); ANION GAP 12 MEQ/L (5-15); AST (GOT) 138 U/L (15-37); BICARBONATE 17.7 MEQ/L (21.0-32.0); BLOOD UREA NITROGEN 45 MG/DL (7-18); CHLORIDE 104 MEQ/L (98-107); CREATINE KINASE 589 U/L (26-192); GLOMERULAR FILTRATION RATE 43 ML/MIN (>89); POTASSIUM 4.4 MEQ/L (3.5-5.1); SODIUM (NA) 134 MEQ/L (136-145); TOTAL BILIRUBIN ADULT 0.9 MG/DL (0.2-1.0)
[2016-05-10 07:30] LABS: CKMB 7.3 NG/ML (0.5-3.6)
[2016-05-10] MEDS ORDERED: METOPROLOL SUCCINATE 50 MG EXTENDED RELEASE TAB PO SCH (09:00)
[2016-05-10] MEDS: SPIRONOLACTONE 25 MG TAB PO SCH (09:14)
[2016-05-10] MEDS: METOPROLOL SUCCINATE 50 MG EXTENDED RELEASE TAB PO SCH ×2 (09:14→20:41)
[2016-05-10] MEDS: PIOGLITAZONE HCL 30 MG TAB PO SCH (09:14)
[2016-05-10] MEDS: TICAGRELOR 90 MG TAB PO SCH ×2 (09:14→20:42)
[2016-05-10] MEDS: CHOLECALCIFEROL (VIT D3) 1000 UNIT TAB PO SCH (09:14)
[2016-05-10] MEDS: SODIUM CHLORIDE 0.9% FLUSH 5 ML FLUSH IVF SCH ×2 (09:14→20:42)
[2016-05-10] MEDS: FENOFIBRATE 145 MG TAB PO SCH (09:14)
[2016-05-10] MEDS: ANASTROZOLE 1 MG TAB PO SCH (09:14)
[2016-05-10] MEDS: ASPIRIN 81 MG CHEW TAB PO SCH (09:15)
--- NOTE | 2016-05-10 11:50 | HHI.PR ---
Subjective Interval History awake alert and oriented feeling tired nauseous multiple BMs earlier this am no fever no family at bed side low BP worsening creatinine Vitals/Results Intake & Output 05/09/16 05/09/16 05/10/16 15:00 23:00 07:00 Intake Total 960 ml 480 ml Output Total 3 ml Balance 957 ml 480 ml Intake Oral 960 ml 480 ml Output Urine Total 3 ml # Voids 4 # Bowel Movements 1 3 Vital Signs Vital Signs Date Time Temp Pulse Resp B/P Pulse Ox O2 Delivery O2 Flow Rate FiO2 05/10/16 10:00 76 05/10/16 09:00 74 05/10/16 08:00 71 05/10/16 08:00 98.0 89 18 104/57 97 05/10/16 07:00 79 05/10/16 06:00 78 05/10/16 05:04 80 05/10/16 04:21 83 05/10/16 03:42 97.8 89 17 113/58 97 05/10/16 03:00 79 05/10/16 02:02 79 05/10/16 01:10 82 05/10/16 00:48 85 05/09/16 23:06 97.7 86 89/50 95 05/09/16 23:00 88 05/09/16 22:13 86 05/09/16 21:28 84 05/09/16 20:24 98 05/09/16 20:00 96 Nasal Cannula 1.00 05/09/16 19:45 97.5 101 17 104/55 96 05/09/16 19:00 103 05/09/16 18:00 102 05/09/16 17:00 99 05/09/16 16:00 100 05/09/16 15:41 98.2 98 20 121/58 96 05/09/16 15:00 98 05/09/16 14:00 92 05/09/16 13:00 94 05/09/16 12:00 92 CBC/BMP: 05/10/16 0620 05/10/16 0620 Lab Results Laboratory Tests Test 05/09/16 05/10/16 22:44 06:20 Troponin I 33.90 NG/ML 26.20 NG/ML White Blood Count 9.0 TH/MM3 Red Blood Count 3.92 MIL/MM3 Hemoglobin 11.0 GM/DL Hematocrit 33.1 % Mean Corpuscular Volume 84.4 FL Mean Corpuscular Hemoglobin 28.1 PG Mean Corpuscular Hemoglobin 33.3 % Concent Red Cell Distribution Width 14.6 % Platelet Count 298 TH/MM3 Mean Platelet Volume 8.8 FL Neutrophils (%) (Auto) 79.0 % Lymphocytes (%) (Auto) 11.0 % Monocytes (%) (Auto) 9.2 % Eosinophils (%) (Auto) 0.2 % Basophils (%) (Auto) 0.6 % Neutrophils # (Auto) 7.1 TH/MM3 Lymphocytes # (Auto) 1.0 TH/MM3 Monocytes # (Auto) 0.8 TH/MM3 Eosinophils # (Auto) 0.0 TH/MM3 Basophils # (Auto) 0.1 TH/MM3 CBC Comment DIFF FINAL Differential Comment Sodium Level 134 MEQ/L Potassium Level 4.4 MEQ/L Chloride Level 104 MEQ/L Carbon Dioxide Level 17.7 MEQ/L Anion Gap 12 MEQ/L Blood Urea Nitrogen 45 MG/DL Creatinine 1.46 MG/DL Estimat Glomerular Filtration 43 ML/MIN Rate Random Glucose 169 MG/DL Calcium Level 9.4 MG/DL Total Bilirubin 0.9 MG/DL Aspartate Amino Transf 138 U/L (AST/SGOT) Alanine Aminotransferase 78 U/L (ALT/SGPT) Alkaline Phosphatase 70 U/L Total Creatine Kinase 589 U/L Creatine Kinase MB 7.3 NG/ML Creatine Kinase MB % 1.2 % Total Protein 7.1 GM/DL Albumin 3.5 GM/DL Assessment/Plan Assessment/Plan Physical Exam Physical Exam VITAL SIGNS: Reviewed GENERAL: Well-nourished black female, looks younger than her stated age, resting in recliner. Not in any acute distress HEENT: Atraumatic, normocephalic. PERRLA at 3. Mucous membranes are pink and moist. Neck is supple. No nasal or ocular discharge. CARDIOVASCULAR: rate controlled. No murmurs,rubs or gallops appreciated. CHEST: No edema. Pulses are intact. PULMONARY: decreased breath sounds in her bases bilateral. No rhonchi. ABDOMEN: Abdomen is round, soft, nontender, nondistended. Active bowel sounds. MUSCULOSKELETAL: She can move all her extremities with purpose. 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 Her pulses are intact. NEUROLOGIC: She is alert, responds with short sentences or short answers. SKIN: Skin is pink mucous membranes, warm and dry. Plan A/P Assessment and Plan 1. STEMI. 2. Dyspnea with hypoxia. 3. Diabetes. 4. Hypertension. 5. Hyperlipidemia. 6. History of breast cancer. 7. ROSA ? dehydration vs Uday I Status post cardiac catheter and stent. 2-D echo report reviewed EF of 15% monitor BP, will add holding parameters to antihypertensives Medications reviewed Improving bicarbonate heart healthy diet. aspirin life long, Brilinta for 12 months Cardiology is following appreciate input and help. Dr Burnett to see d/c Lisinopril, in lieu of worsening creatinine awaiting life vest Discussed with RN discussed with patient Condition guarded labs in am, monitor renal function hold discharge today Martha Euceda MD May 10, 2016 11:50
[2016-05-10] MEDS ORDERED: LISINOPRIL 5 MG TAB PO SCH (13:00)
[2016-05-10] MEDS ORDERED: SODIUM CHLOR 0.9% 1000 ML INJ 1,000 ML IV SCH (13:00)
--- NOTE | 2016-05-10 19:19 | EKG ---
Date Performed: 05/10/2016 Time Performed: 06:25:30 PTAGE: 71 years EKG: CONSIDER ACUTE ST ELEVATION ME Sinus rhythm Leftward axis Anterolateral ST elevation, consider acute ME vs. evolution of ST/T wave changes ST ju nctional depression is nonspecific Abnormal ECG Compared to the PREVIOUS TRACING , from 05/09/16 no significant change DOCTOR: Camacho Weeks Interpretating Date/Time 05/10/2016 19:18:18
--- NOTE | 2016-05-10 19:52 | EKG ---
Date Performed: 05/09/2016 Time Performed: 22:26:28 PTAGE: 71 years EKG: CONSIDER ACUTE ST ELEVATION FL Sinus rhythm Leftward axis Possible septal infarct - age undetermined Lateral ST elevation, CONSIDER ACUTE INFARC T vs evoluation of myocardial infarct Inferior ST changes are nonspecific Abnormal ECG PREVIOUS TRACING : 05/07/2016 05.56 Compared to the previous tracing, previous minimal ST eleva tions now more prominent DOCTOR: Camacho Weeks Interpretating Date/Time 05/10/2016 19:51:26
[2016-05-10] MEDS: LISINOPRIL 10 MG TAB PO SCH (20:41)
[2016-05-10] MEDS: ATORVASTATIN 40 MG TAB PO SCH (20:42)
[2016-05-11] VITALS (13 sets, daily range): BP systolic 104–112; BP diastolic 58–61; PULSE 71–78; RESP 16; TEMP 97.8–98; O2SAT 97–98
[2016-05-11] MEDS: HEPARIN SODIUM - SQ 10,000 UNITS/ML VIAL SQ SCH ×2 (03:21→09:26)
[2016-05-11 04:54] LABS: AUTOMATED NEUTROPHIL # 4.6 TH/MM3 (1.8-7.7); BASOPHIL % 0.4 % (0.0-2.0); EOSINOPHIL # 0.1 TH/MM3 (0-0.4); EOSINOPHIL % 1.1 % (0.0-4.0); HEMATOCRIT 31.6 % (35.0-46.0); HEMO FLAGS DIFF FINAL; LYMPH % 16.4 % (9.0-44.0); LYMPHOCYTE # 1.1 TH/MM3 (1.0-4.8); MEAN CELL VOLUME 83.8 FL (80.0-100.0); MEAN CORPUSCULAR HEMOGLOBIN 28.2 PG (27.0-34.0); MEAN CORPUSCULAR HGB CONC 33.6 % (32.0-36.0); MONO % 11.5 % (0.0-8.0); NEUT % 70.6 % (16.0-70.0); PLATELET COUNT 298 TH/MM3 (150-450); RED BLOOD COUNT 3.77 MIL/MM3 (4.00-5.30); RED CELL DISTRIBUTION WIDTH 14.4 % (11.6-17.2); WHITE BLOOD COUNT 6.5 TH/MM3 (4.0-11.0)
[2016-05-11 05:12] LABS: BICARBONATE 17.4 MEQ/L (21.0-32.0); POTASSIUM 4.1 MEQ/L (3.5-5.1)
[2016-05-11] MEDS: INSULIN ASPART SUPPLEMENTAL SCALE SQ SCH ×2 (06:15→11:00)
[2016-05-11] MEDS: SODIUM CHLORIDE 0.9% FLUSH 5 ML FLUSH IVF SCH (08:21)
[2016-05-11] MEDS: ASPIRIN 81 MG CHEW TAB PO SCH (08:22)
[2016-05-11] MEDS: TICAGRELOR 90 MG TAB PO SCH (08:22)
[2016-05-11] MEDS: PIOGLITAZONE HCL 30 MG TAB PO SCH (08:22)
[2016-05-11] MEDS: CHOLECALCIFEROL (VIT D3) 1000 UNIT TAB PO SCH (08:22)
[2016-05-11] MEDS: METOPROLOL SUCCINATE 50 MG EXTENDED RELEASE TAB PO SCH (08:22)
[2016-05-11] MEDS: LISINOPRIL 10 MG TAB PO SCH (08:25)
[2016-05-11] MEDS: ANASTROZOLE 1 MG TAB PO SCH (08:27)
[2016-05-11] MEDS: FENOFIBRATE 145 MG TAB PO SCH (09:25)
--- NOTE | 2016-05-11 11:08 | HHI.PR ---
Subjective Interval History awake alert and oriented sitting in chair appears comfortable diarrhea resolved no nausea, no vomiting life vest on since yesterday no other complaints Vitals/Results Intake & Output 05/10/16 05/10/16 05/11/16 15:00 23:00 07:00 Intake Total 925 ml 1070 ml Balance 925 ml 1070 ml Intake Oral 625 ml 720 ml IV Total 300 ml 350 ml # Voids 4 4 # Bowel Movements 3 1 Vital Signs Vital Signs Date Time Temp Pulse Resp B/P Pulse Ox O2 Delivery O2 Flow Rate FiO2 05/11/16 10:00 73 05/11/16 09:00 78 05/11/16 08:00 77 05/11/16 07:00 76 05/11/16 07:00 97.8 76 16 112/60 97 05/11/16 06:13 76 05/11/16 05:13 74 05/11/16 04:00 74 05/11/16 03:22 97.9 74 16 105/58 98 05/11/16 03:00 75 05/11/16 02:53 73 05/11/16 01:19 71 05/11/16 00:00 73 05/10/16 23:37 97.9 74 17 110/57 96 05/10/16 23:00 79 05/10/16 22:00 78 05/10/16 21:00 83 05/10/16 20:00 80 05/10/16 20:00 98.0 83 19 98/58 96 05/10/16 19:00 86 05/10/16 18:00 85 05/10/16 17:00 76 05/10/16 16:00 98.0 89 18 108/58 97 05/10/16 16:00 74 05/10/16 15:00 78 05/10/16 15:00 78 05/10/16 14:00 74 05/10/16 13:00 76 05/10/16 12:00 74 05/10/16 12:00 98.2 92 18 106/56 96 CBC/BMP: 05/11/16 0429 05/11/16 0429 Lab Results Laboratory Tests Test 05/11/16 04:29 White Blood Count 6.5 TH/MM3 Red Blood Count 3.77 MIL/MM3 Hemoglobin 10.6 GM/DL Hematocrit 31.6 % Mean Corpuscular Volume 83.8 FL Mean Corpuscular Hemoglobin 28.2 PG Mean Corpuscular Hemoglobin 33.6 % Concent Red Cell Distribution Width 14.4 % Platelet Count 298 TH/MM3 Mean Platelet Volume 8.9 FL Neutrophils (%) (Auto) 70.6 % Lymphocytes (%) (Auto) 16.4 % Monocytes (%) (Auto) 11.5 % Eosinophils (%) (Auto) 1.1 % Basophils (%) (Auto) 0.4 % Neutrophils # (Auto) 4.6 TH/MM3 Lymphocytes # (Auto) 1.1 TH/MM3 Monocytes # (Auto) 0.7 TH/MM3 Eosinophils # (Auto) 0.1 TH/MM3 Basophils # (Auto) 0.0 TH/MM3 CBC Comment DIFF FINAL Differential Comment Sodium Level 136 MEQ/L Potassium Level 4.1 MEQ/L Chloride Level 107 MEQ/L Carbon Dioxide Level 17.4 MEQ/L Anion Gap 12 MEQ/L Blood Urea Nitrogen 45 MG/DL Creatinine 1.05 MG/DL Estimat Glomerular Filtration 63 ML/MIN Rate Random Glucose 144 MG/DL Calcium Level 9.0 MG/DL Assessment/Plan Assessment/Plan Physical Exam Physical Exam VITAL SIGNS: Reviewed GENERAL: Well-nourished black female, looks younger than her stated age, resting in recliner. Not in any acute distress HEENT: Atraumatic, normocephalic. PERRLA at 3. Mucous membranes are pink and moist. Neck is supple. No nasal or ocular discharge. CARDIOVASCULAR: rate controlled. No murmurs,rubs or gallops appreciated. CHEST: No edema. Pulses are intact. PULMONARY: decreased breath sounds in her bases bilateral. No rhonchi. ABDOMEN: Abdomen is round, soft, nontender, nondistended. Active bowel sounds. MUSCULOSKELETAL: She can move all her extremities with purpose. 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 Her pulses are intact. NEUROLOGIC: She is alert, responds with short sentences or short answers. SKIN: Skin is pink mucous membranes, warm and dry. Plan A/P Assessment and Plan 1. STEMI. 2. Dyspnea with hypoxia. 3. Diabetes. 4. Hypertension. 5. Hyperlipidemia. 6. History of breast cancer. 7. ROSA ? dehydration vs Uday I Status post cardiac catheter and stent. 2-D echo report reviewed EF of 15% monitor BP, will add holding parameters to antihypertensives Medications reviewed Improving bicarbonate heart healthy diet. aspirin life long, Brilinta for 12 months Cardiology is following appreciate input and help. Dr Burnett following d/c Lisinopril, in lieu of worsening creatinine, creatinine improved, may start outpatient life vest delivered Discussed with RN discussed with patient d/c to home with outpatient follow up with Martha Roth MD May 11, 2016 11:08
[2016-05-11] MEDS ORDERED: LISI10TA3 PO (11:12)
[2016-05-11] MEDS ORDERED: BRIL90TA PO (11:12)
[2016-05-11] MEDS ORDERED: METO50TA11 PO (11:15)
--- NOTE | 2016-05-11 18:45 | HHI.DS ---
Discharge Summary Admission Date May 06, 2016 at 23:13 Discharge Date: May 11, 2016 Admitting Diagnosis STEMI (1) STEMI (ST elevation myocardial infarction) (2) Hypertension (3) Coronary artery disease (4) S/P coronary artery stent placement (5) Acute renal injury (6) Cardiomyopathy Procedures cardiac cath 05/06 with stent placement CBC/BMP: 05/11/16 0429 05/11/16 0429 Significant Findings Laboratory Tests Test 05/08/16 05/09/16 05/09/16 05/10/16 21:10 05:56 22:44 06:20 Total Creatine Kinase 1846 U/L 589 U/L (26-192) (26-192) Creatine Kinase MB 25.9 NG/ML 7.3 NG/ML (0.5-3.6) (0.5-3.6) Troponin I GREATER THAN 33.90 NG/ML 26.20 NG/ML 40.00 NG/ML (0.02-0.05) (0.02-0.05) (0.02-0.05) Red Blood Count 3.85 MIL/MM3 3.92 MIL/MM3 (4.00-5.30) (4.00-5.30) Hemoglobin 10.8 GM/DL 11.0 GM/DL (11.6-15.3) (11.6-15.3) Hematocrit 32.2 % 33.1 % (35.0-46.0) (35.0-46.0) Neutrophils (%) (Auto) 73.4 % 79.0 % (16.0-70.0) (16.0-70.0) Monocytes (%) (Auto) 10.6 % 9.2 % (0.0-8.0) (0.0-8.0) Monocytes # (Auto) 1.1 TH/MM3 (0-0.9) Sodium Level 134 MEQ/L 134 MEQ/L (136-145) (136-145) Carbon Dioxide Level 20.9 MEQ/L 17.7 MEQ/L (21.0-32.0) (21.0-32.0) Blood Urea Nitrogen 28 MG/DL (7-18) 45 MG/DL (7-18) Creatinine 1.01 MG/DL 1.46 MG/DL (0.50-1.00) (0.50-1.00) Estimat Glomerular Filtration 66 ML/MIN (>89) 43 ML/MIN (>89) Rate Random Glucose 153 MG/DL 169 MG/DL (74-106) (74-106) Total Bilirubin 1.3 MG/DL (0.2-1.0) Aspartate Amino Transf 213 U/L (15-37) 138 U/L (15-37) (AST/SGOT) Alanine Aminotransferase 68 U/L (10-53) 78 U/L (10-53) (ALT/SGPT) Albumin 3.1 GM/DL (3.4-5.0) Test 05/11/16 04:29 Red Blood Count 3.77 MIL/MM3 (4.00-5.30) Hemoglobin 10.6 GM/DL (11.6-15.3) Hematocrit 31.6 % (35.0-46.0) Neutrophils (%) (Auto) 70.6 % (16.0-70.0) Monocytes (%) (Auto) 11.5 % (0.0-8.0) Carbon Dioxide Level 17.4 MEQ/L (21.0-32.0) Blood Urea Nitrogen 45 MG/DL (7-18) Creatinine 1.05 MG/DL (0.50-1.00) Estimat Glomerular Filtration 63 ML/MIN (>89) Rate Random Glucose 144 MG/DL (74-106) Imaging Last Impressions Chest X-Ray 05/06/16 2352 Signed Impressions: Service Date/Time: Friday, May 06, 2016 23:13 - CONCLUSION: No acute disease. Ruddy Taylor MD Hospital Course This is a pleasant 71-year-old black female who had been in her usual state of health, patient went to [facility], came home and took a long 5-hour nap, she interacted with family and had no complaints but her daughter stated that she thought it was a little unusual that she would sleep that length of time. The patient was awakened approximately 10:30 last night with acute onset of chest pain. She was brought to the emergency room, evaluated and seen per cardiology. The patient notes that the chest pain was intense pressure noted midsternal. She did note some radiation into both her arms with numbness and tingling. She was positive for diaphoresis. The patient denies any shortness of breath on initial chest pain episode. The patient does note a previous heart attack in 1997 and states that she had two stents during that episode. She was admitted to the ICU and noted dyspneic and hypoxic, O2 sat is running in the 81-84 range. She was put on on 100% non-rebreather and is actively short of breath and struggling to breathe. She was evaluated, initial CXR showed no acute disease. Was found positive for STEMI, anterior wall. Cardiology consulted. Echo was ordered. Given ASA. Echo showed EF 15% Had cardiac cath, S/P s/p RODNEY to LAD#1, RODNEY to LAD#2 (has a dual LAD system) Continued on ASA/Brilinta/BB/Statin Lasix IV was given x 1 ill reassess tomorrow, LVEDP elevated on cath BP was monitored closely, noted low Noted with renal injury as well. BMP was monitored bicarb was low d/c Lisinopril, in lieu of worsening creatinine, after creatinine improved, may start outpatient cardiology recommended life vest Life vest was arranged and applied. Pt discharged in stable condition, cleared by cardiology. Pt Condition on Discharge: Stable Discharge Disposition: Discharge Home Discharge Instructions DIET: Follow Instructions for: Heart Healthy Diet Activities you can perform: Regular-No Restrictions Follow up Referrals: Cardiology - 2 Weeks with Olinda Burnett MD PCP Follow-up New Medications: Metoprolol Succinate ER 24 HR (Metoprolol Succinate ER 24 HR) 50 Mg Tab 50 MG PO BID Blood Pressure Management #30 Ref 0 TAB Lisinopril (Lisinopril) 10 Mg Tab 10 MG PO BID Blood Pressure Management Days 30 TAB Ticagrelor (Brilinta) 90 Mg Tab 90 MG PO BID Blood Clot Prevention Days 30 TAB Continued Medications: Anastrozole (Arimidex) 1 Mg Tab 1 MG PO DAILY Breast Cancer #30 Ref 0 TAB Aspirin (Aspirin) 81 Mg Chew 81 MG CHEW DAILY Ref 0 TAB Atorvastatin (Lipitor) 80 Mg Tab 80 MG PO HS Cholesterol Management #30 Ref 0 TAB Cholecalciferol (Vitamin D-3) 1,000 Unit Tab 1000 UNITS PO DAILY #30 Ref 0 TAB Fenofibrate (Tricor) 145 Mg Tab 145 MG PO DAILY Takw with food. #30 Ref 0 TAB Metformin (Metformin) 500 Mg Tab 500 MG PO BIDPC With meals Blood Sugar Management #60 Ref 0 TAB Nifedipine ER 24 HR (Procardia XL) 60 Mg Tab 60 MG PO DAILY #30 Ref 0 TAB Pioglitazone (Pioglitazone) 30 Mg Tab 30 MG PO DAILY Blood Sugar Management #30 Ref 0 TAB Triamterene-Hydrochlorothiazide (Triamterene-Hydrochlorothiazide) 37.5-25 Mg Cap 1 CAP PO DAILY #30 Ref 0 CAP Discontinued Medications: Lisinopril (Lisinopril) 20 Mg Tab 20 MG PO BID #30 Ref 0 TAB Metoprolol Succinate ER 24 HR (Metoprolol Succinate ER 24 HR) 200 Mg Tab 200 MG PO DAILY #30 Ref 0 TAB Perla Nunez May 11, 2016 18:45
== END 2016-05-11 11:47 | disposition home or self-care (01) | DRG 247 ==
LOC: NEPC 22:30 → NEDA 23:13 → HCVR 05-07 01:27 → HCPC 05-07 09:09
PROVIDERS: ADMIT Specialist; ATTEND Specialist
PROC: 027135Z Dilation of Coronary Artery, Two Arteries with Two Drug-eluting Intraluminal Devices, Percutaneous Approach (ICD-10-PCS; principal; 2016-05-07)
PROC: 4A023N7 Measurement of Cardiac Sampling and Pressure, Left Heart, Percutaneous Approach (ICD-10-PCS; 2016-05-07)
PROC: B2111ZZ Fluoroscopy of Multiple Coronary Arteries using Low Osmolar Contrast (ICD-10-PCS; 2016-05-07)
DX: I21.02 ST elevation (STEMI) myocardial infarction involving left anterior descending coronary artery (principal); N17.9 Acute kidney failure, unspecified; I42.9 Cardiomyopathy, unspecified; T82.858A Stenosis of other vascular prosthetic devices, implants and grafts, initial encounter; E11.9 Type 2 diabetes mellitus without complications; E78.5 Hyperlipidemia, unspecified; I10 Essential (primary) hypertension; R09.02 Hypoxemia; I25.10 Atherosclerotic heart disease of native coronary artery without angina pectoris; I25.2 Old myocardial infarction; R19.7 Diarrhea, unspecified; Z85.3 Personal history of malignant neoplasm of breast; Z88.2 Allergy status to sulfonamides; Z96.652 Presence of left artificial knee joint
CPT/HCPCS: 71010; 80048; 80053; 82310; 82435; 82550; 82552; 82565; 82947; 82948; 83735; 83880; 84132; 84295; 84484; 84520; 85002; 85025; 85027; 85347; 85610; 85730; 92921; 92941; 93005; 93306; 93454; 94150; 94664; 96374; 96375; C1725; C1757; C1769; C1874; C1887; C1893; J1644; J1815; J1940; J2250; J2270; J2405; J3010; J7030; Q9967

== ENCOUNTER 2016-09-05 10:05 | Observation (INO) | payer MEDICARE ==
[~2016-09-05] VITALS: Ht 170.2 cm; Wt 76.2 kg
[~2016-09-05 10:05] MED LIST changes: +ASPI81CH CHEW; -ASPI81TA82 PO; -ATOR80TA41 PO; +BRIL90TA PO; -CENTTAB9 PO; -HYDR-2768 PO; -IOHEXOL 350 MG/ML 100 ML BTL (for Cath Lab) OTHER ONE; +LIPI80TA PO; -LISI-363 PO; +LISI10TA3 PO; -METF500 PO; +METF500T PO; +METO50TA11 PO; +NIFE1TAB86 PO; -NIFE60TA5 PO; -NITR0.4S SL; -PIOG30 PO; +PIOG30TA4 PO; -TRAM50TA PO; -TRAV0.00 EACH EYE; +TRIA37.53 PO; -VITA-13 PO; +VITA10003 PO; -ZYRT10TA12 PO; -[UNRECOGNIZED DRUG - CODE] PO
[2016-09-05] MEDS ORDERED: CHLORHEXIDINE GLUCONATE 2 % 1 PACK (2 CLOTHS) TOPICAL PRN (10:30)
[2016-09-05] MEDS ORDERED: METOPROLOL TARTRATE 25 MG TAB PO PRN (10:30)
[2016-09-05] MEDS ORDERED: SODIUM CHLORID 0.9% 500 ML IV PRN (10:30)
[2016-09-05] MEDS ORDERED: POVIDONE IODINE 5% (ANTISEPSIS KIT) 4 APPLICATIONS EACH NARE PRN (10:30)
[2016-09-05] MEDS ORDERED: LACTATED RINGER'S 1000 ML IV PRN (10:30)
[2016-09-05] MEDS ORDERED: INSULIN HUMAN REGULAR 1,000 UNITS/10 ML VIAL SQ PRN (10:30)
[2016-09-05 10:36] VITALS: BP 138/75; PULSE 53; RESP 18; TEMP 98.1; O2SAT 100
[2016-09-05] MEDS ORDERED: FURO1TAB60 PO (10:40)
[2016-09-05] MEDS ORDERED: LISI-519 PO (10:40)
[2016-09-05] MEDS ORDERED: LATA0.002 EACH EYE (10:40)
[2016-09-05] MEDS ORDERED: 1/2 NS 1000 ML IV SCH (10:45)
[2016-09-05] MEDS ORDERED: NS 1000 ML IV SCH (10:45)
[2016-09-05 10:58] LABS: AUTOMATED NEUTROPHIL # 2.8 TH/MM3 (1.8-7.7); BASOPHIL # 0.1 TH/MM3 (0-0.2); BASOPHIL % 1.5 % (0.0-2.0); EOSINOPHIL # 0.1 TH/MM3 (0-0.4); EOSINOPHIL % 1.3 % (0.0-4.0); HEMATOCRIT 30.2 % (35.0-46.0); HEMO FLAGS DIFF FINAL; LYMPH % 30.6 % (9.0-44.0); LYMPHOCYTE # 1.5 TH/MM3 (1.0-4.8); MEAN CELL VOLUME 80.1 FL (80.0-100.0); MEAN CORPUSCULAR HEMOGLOBIN 26.1 PG (27.0-34.0); MEAN CORPUSCULAR HGB CONC 32.5 % (32.0-36.0); MONO % 9.6 % (0.0-8.0); PLATELET COUNT 411 TH/MM3 (150-450); RED BLOOD COUNT 3.77 MIL/MM3 (4.00-5.30); RED CELL DISTRIBUTION WIDTH 21.5 % (11.6-17.2); WHITE BLOOD COUNT 4.9 TH/MM3 (4.0-11.0)
[2016-09-05 11:02] LABS: APTT (PATIENT) 30.1 SEC (24.3-30.1); PROTHROMBIN TIME - PATIENT 11.5 SEC (9.8-11.6)
[2016-09-05 11:20] LABS: BICARBONATE 28.4 MEQ/L (21.0-32.0); POTASSIUM 3.9 MEQ/L (3.5-5.1)
[2016-09-05] MEDS ORDERED: VANCOMYCIN 1000 MG/NS 250 ML IV SCH ×2 (11:30)
[2016-09-05] MEDS ORDERED: ceFAZolin 2 GM PREMIX 50 ML IV SCH (11:30)
--- NOTE | 2016-09-05 12:25 | EKG ---
Date Performed: 09/05/2016 Time Performed: 10:58:10 PTAGE: 71 years EKG: Sinus bradycardia Prolonged QT interval Possible septal infarct - age undetermined Anterior , lateral T wave changes may be due to myocardial ischemia Abnormal ECG PREVIOUS TRACING : 05/10/2016 06.25 Compared to previous tracing, anterior and lateral ST eleva tion has resolved. DOCTOR: Jamie Cadet Interpretating Date/Time 09/05/2016 12:24:03
[2016-09-05] MEDS ORDERED: ceFAZolin INJ 1,000 MG VIAL ONE (16:05)
[2016-09-05] MEDS ORDERED: VANCOMYCIN 500 MG VIAL ONE (16:05)
[2016-09-05] MEDS ORDERED: VANCOMYCIN HCL 1000 MG VIAL ONE (16:05)
[2016-09-05] MEDS ORDERED: LIDOCAINE HCL 2% 50 ML VIAL ONE (16:05)
[2016-09-05] MEDS ORDERED: MIDAZOLAM HCL 5 MG/5 ML VIAL ONE ×2 (16:11→17:54)
[2016-09-05] MEDS ORDERED: VANCOMYCIN 1,000 MG/NS 250 ML IV ONE ×2 (16:16)
[2016-09-05] MEDS ORDERED: ceFAZolin 2 GM PREMIX 50 ML IV ONE (16:50)
[2016-09-05] MEDS ORDERED: MIDAZOLAM HCL 5 MG/5 ML VIAL IV ONE (17:07)
[2016-09-05] MEDS ORDERED: MIDAZOLAM HCL 2 MG/2 ML VIAL ONE (17:40)
[2016-09-05] MEDS ORDERED: MIDAZOLAM HCL 2 MG/2 ML VIAL IV ONE ×2 (17:41→18:01)
--- NOTE | 2016-09-05 18:20 | CATHPROC ---
[place] HIS Report Study Information Study Number Admission Scheduled Start Study Start [id number] Sep 05 2016 10:05AM 09/05/2016 Sep 05 2016 4:05PM [place] Service Cardiac Pacer/ICD Admit Source Facility Department Other [facility] - Dispensing Optician Apprentice Physician and Clinical Staff Initial Olinda Paulino Assistant Professor Of Music Parminder PEACOCK, Danis Assistant Professor Of MusicPreston Deal,AYUSH Other Bianka Coleman RN Recorder Mirella Donaldson,HEATH TECH2 Recorder Tenzin Valentino,(R) TECH2 Scrub Alyssa Poe,WASTE COTTON CLEANER TECH2 Procedures Performed Procedure Lead Insertion Equipment Time Medical Insurance Claims Processor Description Size Mfg Part Number Used/Scraped DEFIBRILLATOR, IMPERIA 7 VR-T 17:43 BIOTRONIK [id number] Used DX MRI LEAD, LINOX SMART S DX 65/15 17:09 [employer]IK * [id number] Used (BULK) TP-1103 16:08 MEDLINE INDUSTRIES SUTURE, STRIP PLUS 1/2" * Used *[id number] 16:08 MEDLINE PACER ADHESIVE, MASTISOL 2/3CC 2/3CC 0523-48 Used 16:08 MEDLINE PACER ANDREW, LIMB * 2530 *[id number] Used [id number] 16:08 MEDLINE PACER PACK, PACER CUSTOM * Used *[id number] 16:08 MEDLINE PACER PEN, SKIN DUAL W/ RULER * Used *[id number] 17:15 [employer] PACER SAFE SHEATH, FR8, 13CM FR 8 [id number] Used 16:21 Needle Sponge Count 2 22 Used 16:20 Needle Sponge Count 3 3 Used 16:27 Needle Sponge Count 30 1 Used SUTURE, 3-0 VICRYL [CT-1] ([id number]) SUTURE, 3-0 VICRYL [CT-1] ([id number]) SUTURE, 4-0 VICRYL [PS2] ([id number]) [id number] 16:08 [facility] BLANKET,WARM AIR CCL * Used *[id number] Equipment Model, Serial, Lot Number and Expiration Data Description Model Number Serial Number Lot Number Expiration Date DEFIBRILLATOR, IMPERIA 7 VR-T [id number] 07-15-2017 DX MRI LEAD, LINOX SMART S DX 65/15 [id number] 08-15-2018 (BULK) History: Current Medications Medication Dosage/Unit Route Frequency Last Date/Time Taken ASA Statins (any) BRILLINTA LIPITOR Glucophage LOPRESSOR LASIX LISINOPRIL History: Allergies Allergy Reaction Sulfa N/V History: Risk Factors Family History of Hypertension Dyslipidemia Previous [place] Previous Heart Failure Premature CAD Yes Yes No Yes Yes Prior Valve Prior PCI Prior PCIDate Prior CABG Surgery No Yes 05/06/2016 No Diabetes Yes History: Other Disease Selection Items Cancer Labs Hgb (g/dl) Hct (%) WBC (l/cumm) Platelets (thousands) 12.00-18.00 37.00-55.00 4.80-10.80 140.00-450.00 9.8 30.2 4.9 411 Glucose (mg/dl) BUN (mg/dl) Creatinine (mg/dl) BUN:Creatinine (1:x) 60.00-110.00 8.00-20.00 0.10-9.00 10.00-20.00 80 27 1.1 24.5 Na (meq/l) K (meq/l) 138.00-146.00 3.80-5.10 145 3.9 INR (PTT:PT) 0.50-2.00 1 CPK-MB (ng/ML) 0.00-7.00 Not Drawn Medication Medication Total Dose (Bolus/Oral) Medication Total Dosage/Unit 2% XYLOCAINE 50 mL FENTANYL 100 mcg VERSED 5 mg Medications (Bolus/Oral) Medication Time Given Dosage/Unit Administered By Reason FENTANYL 09/05/2016 5:00:00 PM 50 mcg Danis Zurita RN 50 mcg FENTANYL given in lab by Danis Zurita RN via Peripheral IV. Ordered by Olinda Burnett. VERSED 09/05/2016 5:01:00 PM 4 mg Danis Zurita RN 4 mg VERSED given in lab by Danis Zurita RN via Peripheral IV. Ordered by Olinda Burnett. 2% XYLOCAINE 09/05/2016 5:03:55 PM 50 mL Olinda Burnett 50 mL 2% XYLOCAINE given in lab by lOinda Burnett in Left shoulder via Subcutaneous. Ordered by Olinda Crews. FENTANYL 09/05/2016 5:40:00 PM 25 mcg Danis Zurita RN 25 mcg FENTANYL given in lab by Danis Zurita RN via Peripheral IV. Ordered by Olinda Burnett. VERSED 09/05/2016 5:41:00 PM 1 mg Danis Zurita RN 1 mg VERSED given in lab by Danis Zurita RN via Peripheral IV. Ordered by Olinda Burnett. FENTANYL 09/05/2016 6:01:00 PM 25 mcg Danis Zurita RN 25 mcg FENTANYL given in lab by Danis Zurita RN via Peripheral IV. Ordered by Olinda Burnett. Medication (Drip) Medication Time Given Dosage/Unit Concentration/Unit Diluent (ml) Solution ANCEF 09/05/2016 4:50:00 PM 2 g 2 g ANCEF given in lab by Danis Zurita RN via Peripheral IV. Ordered by Olinda Burnett. IV Solutions 09/05/2016 4:06:27 PM 0 mL (IV) 500 NaCl .9 IV Solutions given in lab by Danis Zurita RN in Left Antecubital via Peripheral IV. Pump/Drip Flow = 20 ml/hr using NaCl .9. IV Solutions 09/05/2016 4:06:29 PM 0 mL (IV) 500 NaCl .9 IV Solutions given in lab by Danis Zurita RN in Right Antecubital via Peripheral IV. Pump/Drip Flow = 20 ml/hr using NaCl .9. VANCOMYCIN DRIP 09/05/2016 4:16:13 PM 1 g 1 g VANCOMYCIN DRIP given in lab by Danis Zurita RN in Right Antecubital via Peripheral IV. Ordered Olinda Prescott. Initial Case Assessment Cardiovascular HR Rhythm NIBP Chest Pain 72 SR 149/71 0 Neurological State Oriented to time-place- Alert Moves all extremities person Respiration - General Respiration Rate SpO2 (%) (B/min) 18 99 Final Case Assessment Cardiovascular HR Rhythm NIBP Chest Pain 75 sr 136/65 0 Edema Present Skin color Skin None Normal Warm Dry Circulatory - Lower Extremities Color Lower Right Color Lower Left Normal Normal Neurological State Oriented to time-place- Alert Moves all extremities person Respiration - General SpO2 (%) O2 (lpm) 97 3 Chronological Log Time Study Chronological Log 15:50:09 Patient arrived via Bed. 15:50:10 Patient Name, D.O.B, / Armband Verified By R.N. 15:51:20 Pre-op and post- op instructions given; patient acknowledges understanding of instructions. 15:55:37 2% CHLORHEXIDINE GLUCONATE WASH AND NASAL SWIPE DONE PRIOR TO PROCEDURE. Vitals capture started with the following parameters, Patient=Adult, Interval=5 min, Initial Pr isbeug=098 mmHg, 16:05:54 Deflation Rate=5 mmHg 16:06:02 Verbal Stimulation=2 Physical Stimulation=2 Airway=2 Respiration=2 TOTAL=8. (0=absent, 1=li mited, 2=present) 16:06:04 Presedation assessment performed by Dispensing Optician Apprentice RN. 16:06:06 Patient has been NPO for More than 6Hrs. 16:06:07 Skin Breakdown-NONE 16:06:10 Disposable Defibrillator Pads Placed On Patient. 16:06:10 Lisbet Prominences Protected 16:06:16 Consent signed by the physician and the patient and verified by the Dispensing Optician Apprentice staff. 16:06:26 A # 20 IV was noted in the Antecubital (left). Grade = PATENT IV Solutions given in lab by Danis Zurita RN in Left Antecubital via Peripheral IV. Pump/Drip F low = 20 ml/hr using NaCl 16:06:27 .9. 16:06:28 A # 20 IV was noted in the Antecubital (right). Grade = PATENT IV Solutions given in lab by Danis Zurita RN in Right Antecubital via Peripheral IV. Pump/Drip Flow = 20 ml/hr using 16:06:29 NaCl .9. 16:06:30 HR=72 bpm, ITIG=866/71 mmhg, PuN8=510 %, Resp=20 B/min, Pain=0, Lindsay=10, Hensley=2 16:07:42 History and physical on the chart or being dictated. Assessment: Initial Case, HR=72 BPM, Rhythm=SR, ENGP=924/71 mmhg, Chest Pain=0 16:07:48 Neurological: State=Alert, Ox3, NEIL Respiration: Resp=18 B/min, SpO2=99 % 16:07:57 Table restraints applied according to hospital policy 16:10:31 Bovie ground pad applied to: Right upper thigh 16:11:33 HR=71 bpm, UQUX=523/72 mmhg, HzD6=426.0 %, Resp=20 B/min, Pain=0, Lindsay=10, Hensley=2 16:15:00 Left Upper Chest Prepped Times Two. 16:16:13 1 g VANCOMYCIN DRIP given in lab by Danis Zurita RN in Right Antecubital via Peripheral IV. Ordered by Olinda Burnett. 16:16:34 HR=83 bpm, LWRD=733/72 mmhg, BzU6=104.0 %, Resp=3 B/min First Sponge And Instrument Count Done by Alyssa Poe, WASTE COTTON CLEANER TECH2. 16:19:44 Hypo's: 3, Sponges: 30, Bovie/scratch: 2 Sutures: 5, Blades: 3, Instruments: 26, Syveck Patches: 0 16:21:35 HR=69 bpm, MFUW=760/66 mmhg, NtI7=702.0 %, Resp=18 B/min, Pain=0, Hensley=2 16:26:36 HR=67 bpm, IGSY=048/74 mmhg, VfG8=521.0 %, Resp=19 B/min, Pain=0, Hensley=2 16:31:35 HR=69 bpm, POUQ=144/66 mmhg, HuM9=714.0 %, Resp=20 B/min 16:36:39 HR=70 bpm, PMMV=855/67 mmhg, TzI7=995.0 %, Resp=18 B/min 16:41:38 HR=69 bpm, HCGK=096/68 mmhg, SpO2=99.0 %, Resp=19 B/min 16:44:58 Reference ECG taken 16:45:22 paged 16:46:37 HR=69 bpm, CFTX=156/67 mmhg, MtI9=962.0 %, Resp=18 B/min 16:50:00 2 g ANCEF given in lab by Danis Zurita RN via Peripheral IV. Ordered by Olinda Burnett. 16:51:38 HR=69 bpm, IIIV=906/73 mmhg, AsD2=525.0 %, Resp=27 B/min 16:52:11 MD arrived. 16:56:39 HR=72 bpm, PEFM=219/78 mmhg, GhJ0=741.0 %, Resp=19 B/min, Pain=0, Lindsay=10, Hensley=2 Time Out. Correct patient, procedure, procedure equipment, site and side verified with physicia n present. Time 16:59:34 concurred by MD, individual staff and PROCUREMENT INSPECTOR. 17:00:00 50 mcg FENTANYL given in lab by Danis Zurita RN via Peripheral IV. Ordered by Jie Burnett 17:01:00 4 mg VERSED given in lab by Danis Zurita RN via Peripheral IV. Ordered by Olinda Burnett. 17:01:40 HR=80 bpm, HCKR=044/74 mmhg, SpO2=98.0 %, Resp=18 B/min 17:03:53 Case Start 17:03:55 50 mL 2% XYLOCAINE given in lab by Olinda Burnett in Left shoulder via Subcutaneous. Ordere d by Olinda Burnett. 17:06:31 Vascular access was obtained in the Subclav. Vein (Lft. 17:06:39 HR=74 bpm, SMRT=199/63 mmhg, SpO2=94.0 %, Resp=17 B/min, Pain=0, Lindsay=10, Hensley=2 17:07:37 Surgical Incision Made. 17:07:45 A pocket was created at the Lt. upper chest. 17:11:34 HR=73 bpm, IYON=658/65 mmhg, SpO2=93.0 %, Resp=5 B/min, Pain=0, Lindsay=10, Hensley=2 17:16:37 HR=79 bpm, TQVZ=443/64 mmhg, SpO2=95.0 %, Resp=4 B/min, Pain=0, Lindsay=10, Hensley=2 17:18:28 A SAFE SHEATH, FR8, 13CM FR 8 was advanced into the Subclav. Vein (Lft using the Modified S alexdinger technique. 17:19:21 A LEAD, LINOX SMART S DX 65/15 (BULK) * was inserted and positioned in the RV. 17:19:33 Lead placement verified under fluoroscopy 17:19:37 The RV lead impedance and threshold being tested. 17:21:36 HR=70 bpm, IMEO=476/70 mmhg, SpO2=96.0 %, Resp=15 B/min, Pain=0, Lindsay=10, Hensley=2 17:26:12 Implant Procedure was performed. 17:26:18 A ICD Implant . (Single) 17:26:37 HR=78 bpm, MXLD=857/69 mmhg, SpO2=99.0 %, Resp=13 B/min, Pain=0, Lindsay=10, Hensley=2 17:31:36 HR=80 bpm, QMEK=065/77 mmhg, SpO2=99.0 %, Resp=9 B/min, Pain=0, Lindsay=10, Hensley=2 17:36:39 HR=71 bpm, AVDH=234/66 mmhg, SpO2=99.0 %, Resp=18 B/min, Pain=0, Lindsay=10, Hensley=2 17:40:00 25 mcg FENTANYL given in lab by Danis Zurita RN via Peripheral IV. Ordered by Jie Burnett 17:41:00 1 mg VERSED given in lab by Danis Zurita RN via Peripheral IV. Ordered by Ashraf. Lex 17:41:40 HR=73 bpm, SAPG=343/65 mmhg, SpO2=99.0 %, Resp=16 B/min, Pain=0, Lindsay=10, Hensley=2 17:44:17 The RV lead was sutured to the fascia. 17:46:39 HR=71 bpm, AOGT=239/67 mmhg, SpO2=97.0 %, Resp=17 B/min, Pain=0, Lindsay=10, Hensley=2 17:51:34 Pocket flushed with antibiotic solution 17:51:38 HR=67 bpm, UWRO=490/67 mmhg, SpO2=98.0 %, Resp=13 B/min 17:51:39 A DEFIBRILLATOR, IMPERIA 7 VR-T DX MRI was connected and placed in the pocket. 17:55:23 The pocket was closed. Second Sponge And Instrument Count Done by Ashraf. Lex 17:55:25 Hypo's: 3, Sponges: 30, Bovie/scratch: 2 Sutures: ~SUTURE~, Blades: 3, Instruments: ~INSTRU~, Syveck Patches: ~SYVECK PATCH~ 17:56:37 HR=75 bpm, FAOF=879/71 mmhg, SpO2=98.0 %, Resp=16 B/min, Pain=0, Lindsay=10, Hensley=2 17:59:26 The DFT was ~RESULT~ at 16 Joules, 45 Ohms lead impedance and 3000 ms charge time. 18:01:00 25 mcg FENTANYL given in lab by Danis Zurita RN via Peripheral IV. Ordered by Jie Burnett 18:01:38 HR=79 bpm, CRKF=686/84 mmhg, SpO2=98.0 %, Resp=11 B/min 18:06:44 HR=69 bpm, JUGC=432/65 mmhg, SpO2=96.0 %, Resp=15 B/min, Pain=0, Lindsay=10, Hensley=2 18:07:10 Bedside Report will be given. The Final Sponge And Instrument Count Done by Olinda Burnett. 18:07:22 Hypo's: hypo's, Sponges: sponges, Bovie/scratch: bovie/scratch Sutures: ~SUTURE~, Blades: ~BLADES~, Instruments: ~INSTRU~, Syveck Patches: ~SYVECK PATCH~ 18:07:26 Steri-strips and a sterile dressing applied to site. 18:07:32 A sling was placed on the affected arm. Assessment: Final Case, HR=75 BPM, Rhythm=sr, SNMZ=342/65 mmhg, Chest Pain=0, Edema=None, Color =Normal, Skin = Warm, Dry Lower Right Extremities: Color=Normal 18:07:53 Lower Left Extremities: Color=Normal Neurological: State=Alert, Ox3, NEIL Respiration: SpO2=97 %, O2=3 lpm 18:11:40 HR=69 bpm, FJQM=009/64 mmhg, SpO2=98.0 %, Resp=12 B/min, Pain=0, Lindsay=10, Hensley=2 18:12:23 Case End 18:12:35 No case complications noted. 18:12:37 Cine recording checked. 18:12:46 Defibrillator and ground pads removed. Skin intact. The Final Sponge And Instrument Count Done by Olinda Burnett. 18:16:00 Hypo's: 3, Sponges: 30, Bovie/scratch: 2 Sutures: 5, Blades: 3, Instruments: 26, Syveck Patches: 0 18:16:39 HR=77 bpm, CCVX=122/68 mmhg, SpO2=99.0 %, Resp=21 B/min, Pain=0, Lindsay=10, Hensley=2 18:19:26 Vitals capture stopped. 18:32:51 Patient moved to stretcher End Study - Maximum Contrast Load Max Contrast Load (mL) 346.9 End Study - Radiation Exposure Fluoro Time (minutes) 9.8 End Study - Patient Disposition Complications Transferred To Interventional Outcome No Telemetry Bed No attempt made
[2016-09-05 19:00] VITALS: PULSE 81
--- NOTE | 2016-09-05 19:51 | RADRPT ---
EXAM DATE/TIME: 09/05/2016 19:09 [place] COMPARISON: CHEST SINGLE AP, May 06, 2016, 23:13. INDICATIONS : Post pacemaker. Evaluate for pneumothorax. MEDICAL HISTORY : Coronary artery disease. SURGICAL HISTORY : Coronary artery stent. ENCOUNTER: Initial ACUITY: 1 day PAIN SCORE: 6/10 LOCATION: Bilateral chest FINDINGS: Underinflated AP view of the chest demonstrates a normal-sized cardiac silhouette. Left chest wall ca rdiac pacing device/AICD is present with a single lead in place. No pneumothorax is visualized. Lungs are underinflated with atelectasis. CONCLUSION: No pneumothorax is visualized. Ruddy Hardy MD on September 05, 2016 at 19:48 Board Certified Radiologist. This report was verified electronically.
[2016-09-05 20:00] VITALS: BP 146/89; PULSE 88; PULSE 92; RESP 18; TEMP 98.5; O2SAT 99
[2016-09-05] MEDS: METOPROLOL SUCCINATE 50 MG EXTENDED RELEASE TAB PO SCH (20:40)
[2016-09-05] MEDS: FUROSEMIDE 40 MG TAB PO SCH (20:40)
[2016-09-05] MEDS: ACETAMINOPHEN/HYDROcodone 325 MG/5 MG TAB PO PRN (20:40)
[2016-09-05 21:00] VITALS: PULSE 90
[2016-09-05] MEDS ORDERED: LATANOPROST 0.005% OPHT SOLN 2.5 ML BTL EACH EYE SCH (21:00)
[2016-09-05] MEDS ORDERED: ATORVASTATIN 80 MG TAB PO SCH (21:00)
[2016-09-05 23:00] VITALS: BP 131/69; PULSE 69; PULSE 79; RESP 18; TEMP 98.7; O2SAT 93
[2016-09-06] VITALS (11 sets, daily range): BP systolic 131–136; BP diastolic 68–73; PULSE 53–73; RESP 18; TEMP 98.2–98.6; O2SAT 96–97
[2016-09-06] MEDS: ceFAZolin 1,000 MG/NS 100 ML IV SCH ×4 (00:36→08:12)
[2016-09-06] MEDS: ACETAMINOPHEN/HYDROcodone 325 MG/5 MG TAB PO PRN ×2 (01:51→06:28)
[2016-09-06] MEDS: FUROSEMIDE 40 MG TAB PO SCH (08:12)
[2016-09-06] MEDS: METOPROLOL SUCCINATE 50 MG EXTENDED RELEASE TAB PO SCH (08:13)
[2016-09-06] MEDS ORDERED: LISINOPRIL 5 MG TAB PO SCH (09:00)
[2016-09-06] MEDS ORDERED: metFORMIN HCL 500 MG TAB PO SCH (09:00)
[2016-09-06] MEDS ORDERED: ASPIRIN 81 MG CHEW TAB CHEW SCH (09:00)
[2016-09-06] MEDS ORDERED: ANASTROZOLE 1 MG TAB PO SCH (09:00)
[2016-09-06] MEDS ORDERED: FENOFIBRATE 145 MG TAB PO SCH (09:00)
--- NOTE | 2016-09-06 17:18 | MP ---
cc: CHARLEY VAZQUEZ M.D., RENA M. M.D. DATE OF SURGERY: 09/05/2016. OPERATION: 1. Placement of single chamber ICD under fluoroscopy. 2. Conscious sedation with over one hour time. INDICATIONS FOR THE PROCEDURE: Ischemic cardiomyopathy with myocardial infarction four months ago with persistent low ejection fraction by an echocardiogram 2 weeks ago showing an LVEF of 30-35%. Class II congestive heart failure on maximum therapy. DESCRIPTION OF THE PROCEDURE IN DETAIL: After obtaining informed consent, she was brought to the cardiac catheterization lab. The left infraclavicular area was prepped in the usual sterile technique. Conscious sedation was performed with multiple doses to a total of 8 milligrams of Versed and 100 micrograms of fentanyl given over a total of one hour. The left subclavian vein was accessed using the modified Seldinger technique. A 0.035 J wire was placed in the left subclavian vein. The pocket was then excised in the usual sterile fashion using a #10 blade and using cautery and blunt dissection the pocket was created. It was dissected towards the pectoralis muscle. A Vancomycin-soaked gauze was placed in the pocket while placing the RV lead. The peel-away sheath was inserted over the wire, and through this sheath, an RV lead from [employer] Linox-Smart DX 65/15 with reference number of [id number], serial number of [id number]. This was advanced in multiple manipulations and was placed in the mid to upper portion of the interventricular septum achieving R waves of 9.5 volts and thresholds of 0.8 volts at 0.4 milliseconds. Impedance was stable at 477 Ohms. This was tested under 10 volts and there was no diaphragmatic stimulation. The lead was then sutured in the pocket using a 2.0 silk suture. This was then connected to an ICD generator from [employer] (Iperia #7 VR-TDX with a reference number [id number] and a serial number [id number] and this was sutured in the pocket after taking the vancomycin-soaked gauze out and after irrigating the pocket with vancomycin solution. It was sutured into the pocket using a 2.0 silk suture. Then the subcutaneous layer was sutured using a 3.0 Vicryl suture and testing defibrillation thresholds was performed with a with initial therapy pacing of 400 to 290 milliseconds and induced ventricular fibrillation which was detected by the device and 6 joules was applied achieving pacing rhythm and then sinus rhythm successfully. Detection time of 3.2 seconds with an impedance of 50 ohms. DEVICE SETTINGS: VVI and at 40 beats per minute. VT zone of 162-188 beats per minute will be treated with ATP x2, 16 joules then 26 joules and then 40 joules times the maximum. V-fib zone of greater than 188 beats per minute, ATP one shock and then 16 joules followed by 26 joules followed by 40 joules to the maximum. The subcuticular layer was sutured in the usual sterile fashion using a 4.0 Vicryl suture. The patient tolerated the procedure well without any complications at the time of dictation. MD RADHA Sher/ÁLVARO /6:26 PM /5:06 PM
== END 2016-09-06 10:26 | disposition home or self-care (01) ==
LOC: HDOC 10:05 → HDIC 10:06 → HCIS 18:35 → HDOC 19:00
PROVIDERS: ADMIT Internal Medicine Interventional Cardiology; ATTEND Internal Medicine Interventional Cardiology
DX: I25.5 Ischemic cardiomyopathy (principal); I11.0 Hypertensive heart disease with heart failure; I50.22 Chronic systolic (congestive) heart failure; I77.9 Disorder of arteries and arterioles, unspecified; E11.59 Type 2 diabetes mellitus with other circulatory complications; E78.2 Mixed hyperlipidemia; I25.10 Atherosclerotic heart disease of native coronary artery without angina pectoris; I25.2 Old myocardial infarction; Z79.84 Long term (current) use of oral hypoglycemic drugs; Z79.82 Long term (current) use of aspirin
CPT/HCPCS: 33249; 71010; 80048; 85025; 85610; 85730; 93005; 99152; 99153; C1722; C1777; G0378; J0690; J2250; J3010; J3370